=== PATIENT | male | born 1985 | race African-American/Black ===

== ENCOUNTER 2016-12-10 07:50 | Emergency (ER) | payer SELFPAY ==
[2016-12-10 07:57] VITALS: BP 140/82
[2016-12-10] MEDS ORDERED: Tetan/Diph/Pertus SYR(Tdap)* 0.5 ML SYR(BOOSTRIX) use SYR IM ONE (08:44)
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
== END 2016-12-10 10:01 | disposition home or self-care (01) ==
LOC: ED 07:50
DX: S61.011A Laceration without foreign body of right thumb without damage to nail, initial encounter (principal); F17.200 Nicotine dependence, unspecified, uncomplicated; X99.9XXA Assault by unspecified sharp object, initial encounter; Y92.9 Unspecified place or not applicable
CPT/HCPCS: 90715; 99281

== ENCOUNTER → 2016-12-28 02:14 | Emergency (ER) | payer SELFPAY ==
[~2016-12-28 02:14] MED LIST: Cephalexin CAP* 500 MG PO ONE; Ibuprofen TAB* 800 MG PO ONE
[2016-12-28 03:24] VITALS: BP 133/89
--- NOTE | 2016-12-28 07:47 | RAD ---
HISTORY: Right finger pain and swelling COMPARISONS: None VIEWS: 3, Frontal, lateral, and oblique views of the fourth digit of the right hand FINDINGS: BONE DENSITY: Normal. BONES: There is no displaced fracture. JOINTS: There is no arthropathy. ALIGNMENT: There is no dislocation. SOFT TISSUES: There is soft tissue swelling along the proximal phalanx of the fourth digit OTHER FINDINGS: None. IMPRESSION: SOFT TISSUE SWELLING. NO ACUTE OSSEOUS INJURY. IF SYMPTOMS PERSIST, RECOMMEND REPEAT IMAGING.
--- NOTE | 2017-01-18 22:57 | ED ---
jerry Thakkar Timothy, scribed for Sp Sparks MD on 12/28/16 at 0244 . Upper Extremity Pain - History of Current Complaint Chief Complaint: EDExtremityUpper Stated Complaint: RIGHT RING FINGER SWELLING Time Seen by Provider: 12/28/16 03:00 Hx Obtained From: Patient Mechanism Of Injury: Unknown Onset/Duration: Started Days Ago, Still Present Timing: Constant Severity Initially: Moderate Severity Currently: Moderate Pain Location: Finger - right 4th Associated Signs & Symptoms: Positive: Swelling - Allergies/Home Medications Allergies/Adverse Reactions: Allergies Allergy/AdvReac Type Severity Reaction Status Date / Time No Known Allergies Allergy Verified 03/12/16 16:42 PMH/Surg Hx/FS Hx/Imm Hx Endocrine/Hematology History: Denies: Hx Anticoagulant Therapy Respiratory History: Denies: Hx Asthma Infectious Disease History: Denies: Traveled Outside the [place] in Last 30 Days - Family History Known Family History: Positive: Hypertension - Social History Alcohol Use: Occasionally Substance Use Type: Reports: None Smoking Status (MU): Current Every Day Smoker Review of Systems Constitutional: Negative Eyes: Negative ENT: Negative Cardiovascular: Negative Respiratory: Negative Gastrointestinal: Negative Genitourinary: Negative Positive: Edema - right 4th finger Skin: Negative Neurological: Negative Psychological: Normal All Other Systems Reviewed And Are Negative: Yes Physical Exam Triage Information Reviewed: Yes Vital Signs On Initial Exam: Initial Vitals Temp Pulse Resp BP Pulse Ox 99.6 F 80 20 141/85 100 12/28/16 02:16 12/28/16 02:16 12/28/16 02:16 12/28/16 02:16 12/28/16 02:16 Vital Signs Reviewed: Yes Appearance: Positive: Well-Appearing, No Pain Distress Skin: Positive: Warm Head/Face: Positive: Normal Head/Face Inspection Eyes: Positive: MIKE ENT: Positive: Hearing grossly normal Neck: Positive: Supple Respiratory/Lung Sounds: Positive: Breath Sounds Present Musculoskeletal: Positive: Other - mild swelling and tenderness distal rt 4th finger, no deformity, from Diagnostics - Vital Signs Vital Signs Temp Pulse Resp BP Pulse Ox 12/28/16 02:16 99.6 F 80 20 141/85 100 - Laboratory Lab Statement: Any lab studies that have been ordered have been reviewed, and results considered in the medical decision making process. - Radiology R 4th finger Xray Interpretation: No Acute Changes - No acute fracture Radiology Interpretation Completed By: ED Physician Course/Dx - Course Assessment/Plan: Gregg Guadalupe is a 31 yo male presenting to [facility] with swelling in his right fourth finger since 0800 12/26/16. His right fourth finger XR suggests no acute fracture. In the ED course he received Kelfex and motrin. After clinical examination and review of his imaging study, he will be discharged home with right fourth finger swelling with appropiate instructions. - Diagnoses Provider Diagnoses: Swelling of right ring finger Discharge - Discharge Plan Condition: Stable Disposition: HOME Prescriptions: Cephalexin CAP* [Keflex CAP*] 250 mg PO QID #30 cap Ibuprofen TAB* [Motrin TAB* 600 MG] 600 mg PO Q6H #30 tab Patient Education Materials: Finger Sprain (ED) Referrals: José Miguel Frias MD [Primary Care Provider] - 2 Days Additional Instructions: Please follow up with your primary care physician regarding your visit to the emergency department today. Return to the emergency department with any new or recurring symptoms. The documentation as recorded by the jerry montano Timothy accurately reflects the service I personally performed and the decisions made by , Sp Sparks MD.
== END | disposition home or self-care (01) ==
LOC: ED 02:14
DX: M79.89 Other specified soft tissue disorders (principal)
CPT/HCPCS: 73140; 99282; A9270-GY

== ENCOUNTER 2017-03-11 09:37 | Emergency (ER) | payer OTHER ==
[2017-03-11] MEDS ORDERED: HYDROcodone/ACETAMIN 5-325 MG* 1 TAB PO ONE (10:09)
[2017-03-11] MEDS ORDERED: Penicillin VK TAB* 250 MG PO ONE ×2 (10:10→10:55)
[2017-03-11 11:18] VITALS: BP 150/104
--- NOTE | 2017-03-11 12:15 | ED ---
Throat Pain/Nasal Congestion - HPI Summary HPI Summary: Patient arrives to ED with CC of pain over right upper premolar radiating to the jaw and ear. Denies trismus, drooling or dysphagia. Pain is 10/10, sharp and throbbing. He states pain began last evening after brushing his teeth. Denies airway compromise or SOB. Denies ear pain, eye pain, blurry vision or double vision. Otherwise healthy. Pain is worse with chewing and cold drinks, not better with ibuprofen. Patient is awaiting medical insurance prior to going to the dentist. He denies any other symptoms. He has HTN and on arrival to the ED BP was 173/147. After dose of pain management, the BP reduced to 150/ 97. Patient is advised to follow up with PCP reagarding HTN and is encouraged to follow up with dentist as well this week. - History of Current Complaint Chief Complaint: EDDentalPain Time Seen by Provider: 03/11/17 09:53 Hx Obtained From: Patient Onset/Duration: Sudden Onset Severity: Severe Associated Signs And Symptoms: Positive: Negative - Epiglottits Risk Factors Epiglottis Risk Factors: Negative - Allergies/Home Medications Allergies/Adverse Reactions: Allergies Allergy/AdvReac Type Severity Reaction Status Date / Time No Known Allergies Allergy Verified 03/11/17 09:51 Home Medications: Home Medications Ibuprofen TAB* [Motrin TAB* 600 MG] 600 mg PO Q6H PRN 03/11/17 [History Confirmed 03/11/17] PMH/Surg Hx/FS Hx/Imm Hx Previously Healthy: Yes Endocrine/Hematology History: Denies: Hx Anticoagulant Therapy Respiratory History: Denies: Hx Asthma - Immunization History Hx Pertussis Vaccination: No Immunizations Up to Date: Unable to Obtain/Confirm Infectious Disease History: No Infectious Disease History: Denies: Traveled Outside the [place] in Last 30 Days - Family History Known Family History: Positive: Hypertension - Social History Occupation: Employed Full-time Lives: With Family Alcohol Use: Occasionally Alcohol Amount: 2 x's per week - beer Hx Substance Use: Yes Substance Use Type: Reports: Marijuana Hx Tobacco Use: Yes Smoking Status (MU): Current Every Day Smoker Review of Systems Constitutional: Negative Eyes: Negative Positive: Dental Pain Cardiovascular: Negative Respiratory: Negative Skin: Negative Psychological: Normal All Other Systems Reviewed And Are Negative: Yes Physical Exam Triage Information Reviewed: Yes Vital Signs On Initial Exam: Initial Vitals Temp Pulse Resp BP Pulse Ox 96.6 F 79 20 161/108 99 03/11/17 09:40 03/11/17 09:40 03/11/17 09:40 03/11/17 09:40 03/11/17 09:40 Vital Signs Reviewed: Yes Appearance: Positive: Well-Appearing, Well-Nourished Skin: Positive: Warm, Skin Color Reflects Adequate Perfusion Eyes: Positive: Normal, MIKE, Conjunctiva Clear ENT: Positive: Dental tenderness Neck: Positive: Supple, No Lymphadenopathy Respiratory/Lung Sounds: Positive: Clear to Auscultation, Breath Sounds Present Cardiovascular: Positive: Normal, RRR, Pulses are Symmetrical in both Upper and Lower Extremities Musculoskeletal: Positive: Normal, Strength/ROM Intact Neurological: Positive: Sensory/Motor Intact, Alert, Oriented to Person Place, Time, Speech Normal Psychiatric: Positive: Normal Diagnostics - Vital Signs Vital Signs Temp Pulse Resp BP Pulse Ox 03/11/17 11:16 97.7 F 70 16 150/104 03/11/17 09:46 98.7 F 74 20 164/100 100 03/11/17 09:40 96.6 F 79 20 161/108 99 - Laboratory Lab Statement: Any lab studies that have been ordered have been reviewed, and results considered in the medical decision making process. EENT Course/Dx - Course Course Of Treatment: No dental abscess or lesions seen over area of concern. No erythema at site of pain. No drainage from area. Pain on palpation over mandible. No TMJ tenderness. No pain with opening and closing mouth. Poor dental hygiene and outpatient dental care. Will treat for possible dental infection/abscess based on symptoms of pain and radiation to jaw and ear. No allergies. Will treat with Penicillin. Patient to follow up immediately with dentist. HTN noted to be 173/147 on arrival. After dispensed pain medication, BP is reduced to 150/97. Medications were reveiwed with patient. Encouarged to follow up with PCP or return to ED for worsening symptoms. Return precautions given. Patient understands and agrees with plan. Ok for discharge. Patient is to follow up with PCP regarding HTN. - Differential Diagnoses Differential Diagnoses: Dental Abscess, Dental Caries, Odontogenic Pain, Pain of Unknown Etiology - Diagnoses Provider Diagnoses: Pain, dental Discharge - Discharge Plan Condition: Stable Disposition: HOME Prescriptions: Penicillin VK 500 MG TAB(NF) [Penicillin VK 500 mg Tab(NF)] 500 mg PO QID #28 tab MDD 4 oxyCODONE/Acetamin 10/325(NF) [Percocet 10/325 (NF)] 1 tab PO QID PRN #12 tab MDD 4 PRN Reason: Pain Patient Education Materials: Toothache (ED) Referrals: José Miguel Frias MD [Primary Care Provider] - Additional Instructions: You have been diagnosed with dental pain with possible infection: Antibiotics as prescribed to you. Penicillin four times daily for 7 days. To minimize the potential for gastrointestinal intolerance, Penicillin should be taken at the start of a meal. If you have any questions about your medication, please contact us or ask your pharmacist. Salt water rinses several times per day will improve healing time. Ibuprofen 600mg three times daily with meals for discomfort. Oxycodone for any breakthrough pain May use lollicaines or OTC Anbesol over the area for comfort. Follow up with a dentist for routine care to prevent recurrence of infections. If fever, worsening pain or swelling develops, see your PCP, dentist or come back to the Emergency Department. Images - Images Dental: 1 - with cavity filling - pain on palpation without signs of infection, abscess or erythema surrounding.
== END 2017-03-11 11:16 | disposition home or self-care (01) ==
LOC: ED 09:37
DX: K08.89 Other specified disorders of teeth and supporting structures (principal); F17.210 Nicotine dependence, cigarettes, uncomplicated
CPT/HCPCS: 99282; A9270-GY

== ENCOUNTER 2017-03-27 22:36 | Emergency (ER) | payer OTHER ==
[2017-03-27 22:43] VITALS: BP 139/75
[2017-03-28] MEDS ORDERED: Clindamycin CAP* 150 MG PO ONE (00:40)
[2017-03-28] MEDS ORDERED: oxyCODONE/Acetamin 5/325 MG* TAB PO ONE (00:41)
--- NOTE | 2017-03-28 00:49 | ED ---
Delmis Thakkar Thomas, scribed for Denny Chisholm on 03/28/17 at 0042 . Throat Pain/Nasal Congestion - HPI Summary HPI Summary: The pt is a 31 y/o F presenting to the ED c/o dental pain for two months. The pt rates the pain 5/10. The pain is aggravated and alleviated by nothing. The patient has treated the pain with Advil and Motrin LVN LPN, which has not alleviated his pain. PMHx: previously healthy. 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 Onset/Duration: Lasting Weeks - 2 months, Still Present Severity: Moderate Associated Signs And Symptoms: Positive: Negative Cough: None - Allergies/Home Medications Allergies/Adverse Reactions: Allergies Allergy/AdvReac Type Severity Reaction Status Date / Time No Known Allergies Allergy Verified 03/27/17 22:41 PMH/Surg Hx/FS Hx/Imm Hx Previously Healthy: No Endocrine/Hematology History: Denies: Hx Anticoagulant Therapy Respiratory History: Denies: Hx Asthma - Surgical History Surgery Procedure, Year, and Place: None Infectious Disease History: No Infectious Disease History: Denies: Traveled Outside the [place] in Last 30 Days - Family History Known Family History: Positive: Hypertension - Social History Alcohol Use: Occasionally Alcohol Amount: 2 x's per week - beer Hx Substance Use: Yes Substance Use Type: Reports: None Hx Tobacco Use: Yes Smoking Status (MU): Current Every Day Smoker Review of Systems Negative: Fever Positive: Dental Pain - for two months All Other Systems Reviewed And Are Negative: Yes Physical Exam Triage Information Reviewed: Yes Vital Signs On Initial Exam: Initial Vitals Temp Pulse Resp BP Pulse Ox 98.0 F 87 16 139/75 98 03/27/17 22:41 03/27/17 22:41 03/27/17 22:41 03/27/17 22:41 03/27/17 22:41 Vital Signs Reviewed: Yes Appearance: Positive: Well-Appearing, No Pain Distress Skin: Positive: Warm, Skin Color Reflects Adequate Perfusion, Dry Head/Face: Positive: Normal Head/Face Inspection Eyes: Positive: EOMI, MIKE ENT: Positive: Dental tenderness - 7th tooth, Other - There is no swelling Neck: Positive: Supple, Nontender Respiratory/Lung Sounds: Positive: Clear to Auscultation, Breath Sounds Present Cardiovascular: Positive: RRR, Pulses are Symmetrical in both Upper and Lower Extremities Abdomen Description: Positive: Nontender, Soft Bowel Sounds: Positive: Present Musculoskeletal: Positive: Normal, Strength/ROM Intact Neurological: Positive: Normal, Sensory/Motor Intact, Alert, Oriented to Person Place, Time Diagnostics - Vital Signs Vital Signs Temp Pulse Resp BP Pulse Ox 03/27/17 22:41 98.0 F 87 16 139/75 98 - Laboratory Lab Statement: Any lab studies that have been ordered have been reviewed, and results considered in the medical decision making process. EENT Course/Dx - Course Assessment/Plan: Patient c/o dental pain for 2 months. Patient diagnosed with dental pain. Prescribed Clindamycin and Percocet. Discharged with referral to dentist in 3 days. - Diagnoses Provider Diagnoses: Pain, dental Discharge - Discharge Plan Condition: Stable Disposition: HOME Prescriptions: Clindamycin HCl [Clindamycin 150 MG CAP*] 300 mg PO QID #40 cap oxyCODONE/Acetamin 5/325 MG* [Percocet 5/325 TAB*] 1 tab PO Q8H PRN #10 tab MDD 3 PRN Reason: Pain Patient Education Materials: Toothache (ED) Referrals: José Miguel Frias MD [Primary Care Provider] - Additional Instructions: Follow up with a dentist in the next 3 days. See the attached sheet with dental care referrals. The documentation as recorded by the Delmis montano Thomas accurately reflects the service I personally performed and the decisions made by , Denny Chisholm.
== END 2017-03-28 00:54 | disposition home or self-care (01) ==
LOC: ED 22:36
DX: K08.89 Other specified disorders of teeth and supporting structures (principal); F17.200 Nicotine dependence, unspecified, uncomplicated
CPT/HCPCS: 99282; A9270-GY

== ENCOUNTER 2017-07-17 01:31 | Inpatient (IN) | payer SELFPAY ==
[2017-07-17] MEDS ORDERED: Aspirin Low Dose CHEW TAB* 81 MG PO ONE (01:55)
[2017-07-17] MEDS ORDERED: Nitroglycerin 2% OINT* 1 GM PAK TOPICAL ONE (01:56)
[2017-07-17 02:17] LABS: Hematocrit 44 % (42-52); Hemoglobin 15.1 g/dl (14.0-18.0); Mean Corpuscular HGB Conc 34 g/dl (31-36); Mean Corpuscular Hemoglobin 31 pg (27-31); Mean Corpuscular Volume 91 fL (80-94); Mean Platelet Volume 8 um3 (7.4-10.4); Red Blood Count 4.85 10^6/ul (4.0-5.4); Red Cell Distribution Width 14 % (10.5-15); White Blood Count 11.3 10^3/ul (3.5-10.8)
[2017-07-17] MEDS ORDERED: Heparin for STEMI(*) 5,000 UNITS/ML 1 ML VIAL IV ONE ×2 (02:24→02:28)
[2017-07-17] MEDS ORDERED: Ticagrelor* 90 MG TAB PO ONE ×2 (02:25→02:28)
[2017-07-17 02:35] LABS: Albumin 4.3 g/dL (3.2-5.2); BUN/Creatinine Ratio 14.5 (8-20); Calcium 9.2 mg/dL (8.6-10.3); EGFR African American 99.8 (>60); EGFR Non-African American 77.6 (>60); Globulin 3.4 g/dL (2-4); Potassium 3.9 mmol/L (3.5-5.0); Total Bilirubin 0.7 mg/dL (0.2-1.0); Total Protein 7.7 g/dL (6.4-8.9)
[2017-07-17 02:43] LABS: Troponin I 0.04 ng/mL (<0.04)
[2017-07-17] MEDS ORDERED: fentaNYL* 50 MCG/ML 2 ML VIAL (100 MCG VIAL) ONE (02:44)
[2017-07-17] MEDS ORDERED: Lidocaine 1% INJ* 10 MG/ML 30 ML SDV ONE (02:45)
[2017-07-17] MEDS ORDERED: Heparin(*) 1000 UNIT/ML 10 ML VIAL CATH LAB IV ONE (02:45)
[2017-07-17] MEDS ORDERED: VERAPAMIL 2.5 MG/ML 4 ML VIAL ONE (02:45)
[2017-07-17] MEDS ORDERED: Heparin 2 UNITS/ML IVPREMIX* 3,000 ML IV ONE (02:45)
[2017-07-17] MEDS ORDERED: nitroGLYCERIN DRIP* 25,000 MCG/250 ML BTL ONE (02:45)
[2017-07-17] MEDS ORDERED: Midazolam* 1 MG/ML 10 ML VIAL (10 MG) ONE (02:46)
[2017-07-17] MEDS ORDERED: Iohexol 350 (CONTRAST) 200 ML MDV IV ONE (02:46)
[2017-07-17 03:35] LABS: Benzodiazepine Urine Screen None Detected (None Detect)
[2017-07-17] MEDS ORDERED: Bivalirudin(*) 250 MG VIAL ONE ×2 (03:37→03:40)
[2017-07-17] MEDS ORDERED: Nitroglycerin TAB 0.4 MG* 0.4 MG TAB SL PRN (04:23)
[2017-07-17] MEDS ORDERED: Acetaminophen TAB* 325 MG PO PRN (04:24)
[2017-07-17] MEDS ORDERED: Atorvastatin* 80 MG TAB PO ONE (04:32)
[2017-07-17] MEDS ORDERED: Atorvastatin* 80 MG TAB ONE (04:38)
[2017-07-17] MEDS: NS 0.9% 1000 ML* 1,000 ML IV SCH ×2 (04:46→14:20)
--- NOTE | 2017-07-17 04:48 | ED ---
Alexi Thakkar Tiffany, scribed for Denny Chisholm on 07/17/17 at 0155 . HPI Chest Pain - HPI Summary HPI Summary: This patient is a 32 year old M presenting to [facility] with a chief complaint of chest pain since two hours ago. The patient rates the pain 8/10 in severity. Symptoms aggravated by nothing. Symptoms alleviated by nothing. Patient reports arm numbness, leg numbness and shakiness. Patient denies nausea, vomiting and dizziness. The patient reports that he consumed two shots of Reese vodka and smoked marijuana. - History of Current Complaint Chief Complaint: EDChestPainROMI Hx Obtained From: Patient Onset/Duration: Started Hours Ago, Still Present Current Severity: Moderate Pain Intensity: 8 Pain Scale Used: 0-10 Numeric Aggravating Factor(s): Nothing Alleviating Factor(s): Nothing Associated Signs and Symptoms: Positive: Other: - arm numbness, leg numbness and shakiness; NEGATIVE: nausea, vomiting and dizziness - Allergy/Home Medications Allergies/Adverse Reactions: Allergies Allergy/AdvReac Type Severity Reaction Status Date / Time No Known Allergies Allergy Verified 03/27/17 22:41 PMH/Surg Hx/FS Hx/Imm Hx Previously Healthy: Yes Endocrine/Hematology History: Denies: Hx Anticoagulant Therapy, Hx Diabetes Cardiovascular History: Denies: Hx Coronary Artery Disease, Hx Hypertension Respiratory History: Denies: Hx Asthma - Surgical History Surgery Procedure, Year, and Place: None Infectious Disease History: No Infectious Disease History: Denies: Traveled Outside the [place] in Last 30 Days - Family History Known Family History: Positive: Hypertension - Social History Alcohol Use: Occasionally Alcohol Amount: 2 x's per week - beer Hx Substance Use: Yes Substance Use Type: Reports: Marijuana Substance Use Comment - Amount & Last Used: a couple of times a week Hx Tobacco Use: Yes Smoking Status (MU): Current Every Day Smoker Review of Systems Positive: Chest Pain Negative: Vomiting, Nausea Neurological: Other - Shakiness; NEGATIVE: shakiness Positive: Numbness - In arms and legs All Other Systems Reviewed And Are Negative: Yes Physical Exam - Summary Physical Exam Summary: Appearance: Well appearing, no pain distress Skin: warm, dry, reflects adequate perfusion Head/face: normal Eyes: EOMI, MIKE ENT: normal Neck: supple, non-tender Respiratory: CTA, breath sounds present Cardiovascular: RRR, pulses symmetrical Abdomen: non-tender, soft Bowel: present Musculoskeletal: normal, strength/ROM intact Neuro: normal, sensory motor intact, A&Ox3 Triage Information Reviewed: Yes Vital Signs On Initial Exam: Initial Vitals Temp Pulse Resp BP Pulse Ox 97.9 F 84 20 142/114 99 07/17/17 01:35 07/17/17 01:35 07/17/17 01:35 07/17/17 01:35 07/17/17 01:35 Vital Signs Reviewed: Yes - Letty Coma Scale Coma Scale Total: 15 Diagnostics - Vital Signs Vital Signs Temp Pulse Resp BP Pulse Ox 07/17/17 01:35 97.9 F 84 20 142/114 99 - Laboratory Lab Results: Lab Results 07/17/17 07/17/17 07/17/17 Range/Units 02:02 02:02 02:02 WBC 11.3 H (3.5-10.8) 10^3/ul RBC 4.85 (4.0-5.4) 10^6/ul Hgb 15.1 (14.0-18.0) g/dl Hct 44 (42-52) % MCV 91 (80-94) fL MCH 31 (27-31) pg MCHC 34 (31-36) g/dl RDW 14 (10.5-15) % Plt Count 184 (150-450) 10^3/ul MPV 8 (7.4-10.4) um3 Neut % (Auto) 78.9 (38-83) % Lymph % (Auto) 14.3 L (25-47) % [place] Per[place] % (Auto) 6.0 (1-9) % Eos % (Auto) 0.3 (0-6) % Baso % (Auto) 0.5 (0-2) % Absolute Neuts (auto) 8.9 H (1.5-7.7) 10^3/ul Absolute Lymphs (auto) 1.6 (1.0-4.8) 10^3/ul Absolute Monos (auto) 0.7 (0-0.8) 10^3/ul Absolute Eos (auto) 0 (0-0.6) 10^3/ul Absolute Basos (auto) 0.1 (0-0.2) 10^3/ul Absolute Nucleated RBC 0 10^3/ul Nucleated RBC % 0 INR (Anticoag Therapy) 1.03 H (0.77-1.02) APTT 31.5 (26.0-36.3) seconds Sodium (133-145) mmol/L Potassium (3.5-5.0) mmol/L Chloride (101-111) mmol/L Carbon Dioxide (22-32) mmol/L Anion Gap (2-11) mmol/L BUN (6-24) mg/dL Creatinine (0.67-1.17) mg/dL Est GFR ( Amer) (>60) Est GFR (Non-Af Amer) (>60) BUN/Creatinine Ratio (8-20) Glucose (70-100) mg/dL Calcium (8.6-10.3) mg/dL Total Bilirubin (0.2-1.0) mg/dL AST (13-39) U/L ALT (7-52) U/L Alkaline Phosphatase (34-104) U/L Total Creatine Kinase (10-223) U/L CK-MB (CK-2) (0.6-6.3) ng/mL Myoglobin (17.4-105.7) ng/mL Troponin I (<0.04) ng/mL B-Natriuretic Peptide 20 ( - 100) pg/mL Total Protein (6.4-8.9) g/dL Albumin (3.2-5.2) g/dL Globulin (2-4) g/dL Albumin/Globulin Ratio (1-3) LDL Cholesterol Direct mg/dL Urine Opiates Screen (None Detect) Ur Barbiturates Screen (None Detect) Ur Phencyclidine Scrn (None Detect) Ur Amphetamines Screen (None Detect) U Benzodiazepines Scrn (None Detect) Urine Cocaine Screen (None Detect) U Cannabinoids Screen (None Detect) 07/17/17 07/17/17 Range/Units 02:02 03:00 WBC (3.5-10.8) 10^3/ul RBC (4.0-5.4) 10^6/ul Hgb (14.0-18.0) g/dl Hct (42-52) % MCV (80-94) fL MCH (27-31) pg MCHC (31-36) g/dl RDW (10.5-15) % Plt Count (150-450) 10^3/ul MPV (7.4-10.4) um3 Neut % (Auto) (38-83) % Lymph % (Auto) (25-47) % [place] Per[place] % (Auto) (1-9) % Eos % (Auto) (0-6) % Baso % (Auto) (0-2) % Absolute Neuts (auto) (1.5-7.7) 10^3/ul Absolute Lymphs (auto) (1.0-4.8) 10^3/ul Absolute Monos (auto) (0-0.8) 10^3/ul Absolute Eos (auto) (0-0.6) 10^3/ul Absolute Basos (auto) (0-0.2) 10^3/ul Absolute Nucleated RBC 10^3/ul Nucleated RBC % INR (Anticoag Therapy) (0.77-1.02) APTT (26.0-36.3) seconds Sodium 133 (133-145) mmol/L Potassium 3.9 (3.5-5.0) mmol/L Chloride 101 (101-111) mmol/L Carbon Dioxide 26 (22-32) mmol/L Anion Gap 6 (2-11) mmol/L BUN 16 (6-24) mg/dL Creatinine 1.10 (0.67-1.17) mg/dL Est GFR ( Amer) 99.8 (>60) Est GFR (Non-Af Amer) 77.6 (>60) BUN/Creatinine Ratio 14.5 (8-20) Glucose 125 H (70-100) mg/dL Calcium 9.2 (8.6-10.3) mg/dL Total Bilirubin 0.70 (0.2-1.0) mg/dL AST 22 (13-39) U/L ALT 33 (7-52) U/L Alkaline Phosphatase 60 (34-104) U/L Total Creatine Kinase 157 (10-223) U/L CK-MB (CK-2) 2.8 (0.6-6.3) ng/mL Myoglobin 81.2 (17.4-105.7) ng/mL Troponin I 0.04 H* (<0.04) ng/mL B-Natriuretic Peptide ( - 100) pg/mL Total Protein 7.7 (6.4-8.9) g/dL Albumin 4.3 (3.2-5.2) g/dL Globulin 3.4 (2-4) g/dL Albumin/Globulin Ratio 1.3 (1-3) LDL Cholesterol Direct 115 mg/dL Urine Opiates Screen None detected (None Detect) Ur Barbiturates Screen None detected (None Detect) Ur Phencyclidine Scrn None detected (None Detect) Ur Amphetamines Screen None detected (None Detect) U Benzodiazepines Scrn None detected (None Detect) Urine Cocaine Screen None detected (None Detect) U Cannabinoids Screen Presumptive positive H (None Detect) Result Diagrams: 07/17/17 02:02 07/17/17 02:02 Lab Statement: Any lab studies that have been ordered have been reviewed, and results considered in the medical decision making process. - Radiology CXR Radiology Interpretation Completed By: ED Physician - CXR is normal. - EKG 01:42 Cardiac Rate: NL EKG Rhythm: Sinus Rhythm - 72 BPM EKG Interpretation: st elevation inf leads Chest Pain Course/Dx - Course Course Of Treatment: This patient is a 32 year old M presenting to [facility] with a chief complaint of chest pain since two hours ago. An EKG reveals sinus rhythm ST changes in inferior waves. CXR is, per ED physician, normal. Bloodwork obtained. In the ED course the patient was given Aspirin and Nitroglycerin. We discussed patient care with Dr. No (cardiology) who advised that the patient is not having acute STEMI at the moment. Dr. Mora (interventionalist cardiology) called and said that patient was STEMI. Patient will be admitted. The patient is agreeable with this plan. - Diagnoses Provider Diagnoses: Inferior STEMI - Provider Notifications Discussed Care Of Patient With: Bladimir No Time Discussed With Above Provider: 02:05 Instructed by Provider To: Other - We discussed patient care with Dr. No ( cardiology) who advised that the patient is not having acute STEMI at the moment. At 02:18, Dr. Mora called me and said the patient was STEMI. - Critical Care Time Critical Care Time: 75-104 min Discharge - Discharge Plan Condition: Fair Disposition: ADMITTED TO [facility] documentation as recorded by the Alexi montano Tiffany accurately reflects the service I personally performed and the decisions made by , Denny Chisholm.
[2017-07-17] MEDS ORDERED: Captopril TAB* 12.5 MG PO SCH (06:00)
[2017-07-17] MEDS: Metoprolol Tartrate TAB* 25 MG PO SCH ×4 (06:06→20:29)
[2017-07-17] MEDS ORDERED: Lidocaine 2% (CARDIAC)* 20 MG/ML 5 ML SYRINGE (100 MG) IV ONE (07:25)
[2017-07-17] MEDS ORDERED: Lidocaine 2% (CARDIAC)* 20 MG/ML 5 ML SYRINGE (100 MG) ONE (07:26)
[2017-07-17] MEDS ORDERED: LIDOCAINE IVPB ONE (07:26)
[2017-07-17 07:58] LABS: Hematocrit 42 % (42-52); Hemoglobin 14.4 g/dl (14.0-18.0); Mean Corpuscular HGB Conc 34 g/dl (31-36); Mean Corpuscular Hemoglobin 31 pg (27-31); Mean Corpuscular Volume 91 fL (80-94); Mean Platelet Volume 8 um3 (7.4-10.4); Red Blood Count 4.64 10^6/ul (4.0-5.4); Red Cell Distribution Width 14 % (10.5-15); White Blood Count 12.3 10^3/ul (3.5-10.8)
--- NOTE | 2017-07-17 07:58 | RAD ---
INDICATION: Chest pain x4 hours COMPARISON: None. TECHNIQUE: Single AP portable view of the chest was obtained. FINDINGS: Image quality is compromised due to the relative inferiority of a portable chest x-ray. The heart and mediastinum exhibit normal size and contour. The lungs are grossly clear. There is no evidence of a large pleural effusion. Visualized bones are normal for the patient's age. IMPRESSION: No radiographic evidence for acute cardiopulmonary abnormality on this portable chest x-ray.
[2017-07-17 08:10] LABS: BUN/Creatinine Ratio 12.5 (8-20); Calcium 9.1 mg/dL (8.6-10.3); EGFR African American 116.7 (>60); EGFR Non-African American 90.8 (>60); Potassium 3.8 mmol/L (3.5-5.0)
[2017-07-17] MEDS ORDERED: Captopril TAB* 12.5 MG PO ONE (09:18)
[2017-07-17] MEDS: Ticagrelor* 90 MG TAB PO SCH ×2 (09:18→20:29)
[2017-07-17] MEDS: LIDOCAINE DRIP IVPB ONE ×2 (09:21→23:31)
--- NOTE | 2017-07-17 10:45 | HP ---
CC: José Miguel Frias MD * HISTORY AND PHYSICAL: DATE OF ADMISSION: 07/17/17 CHIEF COMPLAINT: The patient with chest discomfort starting from approximately 10 p.m. last night with EKG suggesting acute ST segment elevation inferior wall myocardial infarction. HISTORY OF PRESENT ILLNESS: The patient is a pleasant 32-year-old - I[place]ian male with no prior known cardiac history. He specifically denies any history of myocardial infarction, congestive heart failure, significant heart rhythm disturbance. The patient states that last night he smoked marijuana and also drank alcohol. He started feeling epigastric discomfort that got worsening in nature as a pressure sensation. He eventually read online about concerns about the potential of laced marijuana and eventually decided to seek medical attention and went to the emergency room. In the emergency room, his EKG was abnormal and the emergency room physician called Dr. Bladimir No, who was on-call for Cardiology. Dr. No reviewed the EKG and then called me and asked me to look at the EKG. I reviewed the EKG and discussed it with him and stated that I thought this was indeed a STEMI and I called the emergency room back and had them call a STEMI alert. On arrival, he was still having mild-to- moderate active chest discomfort. His vital signs were stable. The risks and benefits were explained. After obtaining his history and examining him, he understood them and wished to proceed. The patient specifically denied any history of hypertension or diabetes or high cholesterol. He does have a positive history of smoking and he denies any significant family history of early coronary artery disease. There is a family history of hypertension. PAST SURGICAL HISTORY: None. ALLERGIES: No known allergies. SOCIAL HISTORY: Drinks alcohol at least 2 times a week. Does use marijuana and does smoke on a daily basis. REVIEW OF SYSTEMS: Pertinent to proceeding emergently to the cardiovascular laboratory. He denied any history of kidney dysfunction, any allergy to contrast agent that he was aware of. No significant bleeding history. Denying hematemesis, hematochezia or hematuria. No prior history of stroke or TIA. PHYSICAL EXAMINATION GENERAL: When I see him reveals a pleasant gentleman, who appears to be mildly anxious, appropriate for the situation. VITAL SIGNS: Blood pressure 147/89, pulse 90, respirations 23, O2 saturation 100%. HEENT: Conjunctivae are pink. Sclerae are clear. NECK: Supple. No increased JVP. Carotid with good upstroke and volume. There are no bruits or transmitted murmur. LUNGS: Reveal no accessory muscle usage. He has [id number] excursion. Lungs have no active rales, rhonchi, or wheezes. HEART: Reveals no visible heaves, no palpable heaves or thrills. Heart sounds are mildly distant due to large chest. No significant systolic or diastolic murmur. ABDOMEN: Soft, mildly obese, nontender without organomegaly. EXTREMITIES: Without clubbing, cyanosis, juany pitting edema. Peripheral pulses are intact. NEUROLOGIC: The patient is alert, oriented with normal mentation. MUSCULOSKELETAL: The patient moves all extremities appropriately. PSYCHOLOGICAL: The patient with normal affect. DIAGNOSTIC STUDIES/LAB DATA: Initial laboratory results revealed a BUN and creatinine of 16 and 1.1. Sodium 133, potassium 3.9. Hemoglobin and hematocrit 15.1 and 44, white count 11,300, platelet count 184,000. BNP 20. LDL 115. Total CPK 157. Myoglobin 81.2. Troponin 0.04. EKG shows normal sinus rhythm, 72, with ST segment depression, downsloping in I , aVL, and V2 and V6 with mild ST segment elevation in II, III, aVF. OVERALL ASSESSMENT: The patient presents with persistent chest discomfort. EKG suggesting an acute ST segment elevation inferior wall myocardial infarction suggesting perhaps total occlusion of the right coronary artery. The patient has received heparin 4000 units, Brilinta 180 mg orally, and aspirin 325 orally. The risks and benefits were explained. He understood them and wished to proceed. Further management will be made pending results of the cardiac catheterization. [id number]/[facility] #: [id number] [facility]
[2017-07-17] MEDS ORDERED: Metoprolol Tartrate TAB* 25 MG PO SCH (11:00)
[2017-07-17] MEDS: Captopril TAB* 12.5 MG PO SCH ×2 (14:33→20:29)
[2017-07-17] MEDS ORDERED: Metoprolol Tartrate TAB* 25 MG ONE (14:47)
[2017-07-17 15:16] LABS: Troponin I 44.54 ng/mL (<0.04)
[2017-07-17] MEDS: Atorvastatin* 80 MG TAB PO SCH (17:35)
[2017-07-17 21:38] LABS: Troponin I 32.7 ng/mL (<0.04)
[2017-07-18] MEDS ORDERED: LIDOCAINE DRIP IVPB SCH (02:00)
[2017-07-18] MEDS: Metoprolol Tartrate TAB* 25 MG PO SCH (02:47)
[2017-07-18 05:45] LABS: Hematocrit 42 % (42-52); Hemoglobin 14.4 g/dl (14.0-18.0); Mean Corpuscular HGB Conc 34 g/dl (31-36); Mean Corpuscular Hemoglobin 31 pg (27-31); Mean Corpuscular Volume 91 fL (80-94); Mean Platelet Volume 8 um3 (7.4-10.4); Red Blood Count 4.62 10^6/ul (4.0-5.4); Red Cell Distribution Width 14 % (10.5-15); White Blood Count 9.1 10^3/ul (3.5-10.8)
[2017-07-18 06:02] LABS: Albumin 3.6 g/dL (3.2-5.2); BUN/Creatinine Ratio 9.1 (8-20); Calcium 8.7 mg/dL (8.6-10.3); EGFR African American 129.1 (>60); EGFR Non-African American 100.4 (>60); Potassium 3.9 mmol/L (3.5-5.0); Total Bilirubin 1.1 mg/dL (0.2-1.0); Total Protein 6.6 g/dL (6.4-8.9)
[2017-07-18] MEDS ORDERED: Metoprolol Succinate XL TAB* 50 MG PO SCH (09:00)
[2017-07-18] MEDS: Ticagrelor* 90 MG TAB PO SCH ×2 (09:18→20:34)
[2017-07-18] MEDS: Aspirin Low Dose CHEW TAB* 81 MG PO SCH (09:18)
[2017-07-18] MEDS: Captopril TAB* 12.5 MG PO SCH ×3 (09:19→20:33)
--- NOTE | 2017-07-18 11:06 | ECHO ---
Patient: JASWANT RODRIGUEZ [facility] Rec#: [id number] : 1985 Date: 07/18/2017 Age: 32y Height: 172.7 cm / 68.0 in Weight: 130.6 kg / 287.8 lbs Sex: M BSA: 2.4 Room#: ICU 7 Admit Date#: 07/17/2017 Type: Inpatient Referring: Deion Mora MD Reading: Deion Mora MD Senior Editor: Manisha Cortes RN RDCS CC: José Miguel Frias MD Transthoracic Echocardiogram Indication: Inferior STEMI S/P PCI BP: 143/84 HR: 74 Rhythm: NSR Findings History: ETOH and marijuana use, smoker, obesity Technical Comments: The study quality is fair. The study is technically limited due to patient body habitus. The study is technically limited due to the patient's smoking history. Completed at 0915. Left Ventricle: The left ventricular chamber size is normal. Moderate concentric left ventricular hypertrophy is observed. There is increased basal septal hypertrophy noted without evidence of an increased gradient across the left ventricular outflow tract. There are multiple regional wall motion abnormalities. There is moderately decreased left ventricular systolic function. The estimated ejection fraction is 35-40%. There is no consistent Doppler evidence of clinically significant diastolic dysfunction. Left Atrium: The left atrium is mildly dilated. Right Ventricle: The right ventricle is slightly dilated. The right ventricular global systolic function is mildly to moderately reduced. Right Atrium: The right atrium is mildly dilated. There is evidence of an atrial septal aneurysm. Aortic Valve: The aortic valve is trileaflet. The aortic valve leaflets are mildly thickened. There is aortic annular calcification. There is a trace of aortic regurgitation. There is no evidence of aortic stenosis. Mitral Valve: The mitral valve leaflets are mildly thickened. There is a trace of mitral regurgitation. There is no evidence of mitral stenosis. Tricuspid Valve: The tricuspid valve leaflets are normal. There is trace tricuspid regurgitation. No pulmonary hypertension is noted. There is no tricuspid stenosis. Pulmonic Valve: The pulmonic valve appears normal. There is mild pulmonic regurgitation. There is no pulmonic stenosis. Pericardium: There is no significant pericardial effusion. A pericardial fat pad is visualized. Aorta: There is no dilatation of the ascending aorta. There is no dilatation of the aortic arch. There is no dilation of the aortic root. Pulmonary Artery: The main pulmonary artery appears normal. Venous: The inferior vena cava appears normal in size. There is a greater than 50% respiratory change in the inferior vena cava dimension. Conclusions Moderate concentric left ventricular hypertrophy is observed. There is moderately decreased left ventricular systolic function. The estimated ejection fraction is 35-40%. There are multiple regional wall motion abnormalities. The right ventricular global systolic function is mildly to moderately reduced. The right atrium is mildly dilated. The left atrium is mildly dilated. No significant valvular disease: There is a trace of aortic regurgitation. There is a trace of mitral regurgitation. There is trace tricuspid regurgitation. There is mild pulmonic regurgitation. No reports of prior studies are offered for comparison. Measurements Name Value Normal Range RVIDd (AP) 2D 3.7 cm (0.9 - 2.6) RVDdMajor (2D) 3.9 cm (2.2 - 4.4) RAd ISD 4CH 5 cm (3.4 - 4.9) RA (A4C)W 4.5 cm (2.9 - 4.6) IVSd (2D) 1.6 cm (0.6 - 1) LVPWd (2D) 1.6 cm (0.6 - 1) LVIDd (2D) 4.3 cm (3.6 - 5.4) LVIDs (2D) 3.6 cm - LV FS (2D) 17 % (25 - 45) Aortic Annulus 2.3 cm (1.4 - 2.6) Ao root diameter (2D) 3.3 cm (2.1 - 3.5) Ascending Ao 2.7 cm (2.1 - 3.4) Aortic arch 2.8 cm (1.8 - 3.4) LA dimension (AP) 2D 3.3 cm (2.3 - 3.8) LAd ISD 4CH 5.6 cm (2.9 - 5.3) LA ISD 4CH W 4.6 cm (2.5 - 4.5) Name Value Normal Range LA ESV SP 4CH (A/L) 53 ml - LA ESV SP 2CH (A/L) 48 ml - LA ESV BP (A/L) 53 ml - LA ESV BP (A/L) index 22.5 ml/m2 - LA ESV SP 4CH (MOD) 50 ml - LA ESV SP 2CH (MOD) 47 ml - Name Value Normal Range MV E-wave Vmax 0.8 m/sec - MV deceleration time 195 msec - MV A-wave Vmax 0.78 m/sec - MV E:A ratio 1 ratio - LV septal e' Vmax 0.08 m/sec - LV lateral e' Vmax 0.11 m/sec - LV E:e' septal ratio 10 ratio - LV E:e' lateral ratio 7.3 ratio - Name Value Normal Range AV Vmax 1.4 m/sec - AV VTI 24.1 cm - AV peak gradient 7.8 mmHg - AV mean gradient 3.9 mmHg - LVOT Vmax 1.1 m/sec - LVOT VTI 17.6 cm - LVOT peak gradient 4.6 mmHg - LVOT mean gradient 2.3 mmHg - CHELSIE Vmax 0.76 m/sec - Name Value Normal Range TR Vmax 2.2 m/sec - TR peak gradient 19 mmHg - RAP 3 mmHg - RVSP 22 mmHg - IVC diameter 2 cm - Name Value Normal Range PV Vmax 0.79 m/sec -
[2017-07-18] MEDS ORDERED: Metoprolol Succinate XL TAB* 25 MG PO ONE (11:29)
[2017-07-18] MEDS: LORazepam TAB(*) 0.5 MG PO SCH ×2 (11:54→21:46)
[2017-07-18] MEDS: Enoxaparin(*) 40 MG/0.4 ML SYR SUBCUT SCH (11:55)
[2017-07-18] MEDS: Atorvastatin* 80 MG TAB PO SCH (17:42)
[2017-07-18] MEDS: Metoprolol Succinate XL TAB* 50 MG PO SCH (20:32)
[2017-07-19 06:39] LABS: BUN/Creatinine Ratio 10.6 (8-20); EGFR African American 119.6 (>60); Potassium 4.1 mmol/L (3.5-5.0)
[2017-07-19] MEDS: LORazepam TAB(*) 0.5 MG PO SCH ×2 (09:00→22:13)
[2017-07-19] MEDS: Aspirin Low Dose CHEW TAB* 81 MG PO SCH (09:00)
[2017-07-19] MEDS: Ticagrelor* 90 MG TAB PO SCH ×2 (09:00→22:13)
[2017-07-19] MEDS: Captopril TAB* 12.5 MG PO SCH ×3 (09:01→22:10)
[2017-07-19] MEDS: Metoprolol Succinate XL TAB* 50 MG PO SCH ×2 (09:01→22:11)
[2017-07-19] MEDS: Enoxaparin(*) 40 MG/0.4 ML SYR SUBCUT SCH (12:09)
[2017-07-19] MEDS: Atorvastatin* 80 MG TAB PO SCH (17:33)
[2017-07-19] MEDS: Zolpidem TAB* 5 MG PO PRN (22:16)
--- NOTE | 2017-07-20 00:50 | CATH ---
CARDIAC CATHETERIZATION AND INTERVENTIONAL REPORT: DATE OF PROCEDURE: 07/17/17 INDICATION FOR PROCEDURE: The patient presents with acute ST-segment elevation inferior wall myocardial infarction. PROCEDURE: Coronary arteriography, thrombectomy, balloon angioplasty and placement of a 3.5 x 38 mm long Synergy drug-eluting stent in the proximal to mid right coronary artery, post dilated in the mid segment to 3.7 mm and proximally to 4.2 mm, left heart catheterization, left ventriculography. DESCRIPTION OF PROCEDURE: The patient was interviewed and examined in the emergency room where the risks and benefits were explained, he understood them and wished to proceed. Of note, he was given a 4000 units of heparin as well as full dose aspirin and a 180 mg of Brilinta. The patient was brought to the cardiovascular laboratory, where a formal time- out was performed. The patient was prepped and draped in a sterile fashion. The right radial artery was assessed for size and found to be appropriate as an approach. The right radial artery area was anesthetized with 1% lidocaine. The right radial artery was cannulated and a 6-Nigerien Glidesheath was placed. The patient received a radial artery cocktail including 300 mcg of nitroglycerin and 3 mg verapamil. He already received heparin therapy in the emergency room, no heparin was given. Coronary arteriography was performed utilizing a 5-Nigerien TIG4 curved catheter. Following this, decision to intervene was made. An ACT was checked and found to be subtherapeutic. He received an Angiomax bolus and Angiomax drip was started. Guiding views were obtained utilizing ART4 curve with side holes 6-Nigerien guide catheter. An All Star interventional wire was advanced down the right coronary artery and a Pronto V4 extraction catheter was utilized to perform thrombectomy. Following this, balloon angioplasty was performed with a 3.0 x 30 mm long NC Emerge balloon, followed by placement of a 3.5 x 38 mm long Synergy drug-eluting stent, post dilated in the mid to distal portion with a 3.5 x 20 mm NC Emerge balloon to high pressures in proximally with a 4.0 x 12 mm long NC Emerge balloon to high pressure. Following this, the left heart catheterization was performed utilizing a 5-Nigerien pigtail catheter advanced to the ascending aorta. The catheter was then passed across the aortic valve into the left ventricle where left ventricular pressure was recorded. The left ventriculography was performed utilizing a total of 28 cc of Omnipaque dye at a rate of 14 cc per second. The catheter was then pulled back across the aortic valve to recheck gradient. At the end of the case, the catheter was removed and hemostasis was obtained with a radial artery band. A reverse Barbeau was checked and was found to be B. The total contrast used for the case was 200 cc of Omnipaque dye. The radiation exposure included 17.9 minutes of fluoro time. The air kerma radiation was 2317 microgray. The DAP radiation was 14,777 microgray per meter square. RESULTS: HEMODYNAMIC DATA: Left heart catheterization: Ascending aortic pressure was recorded at 110/ 67 with a mean of 83. Left ventricular pressure was 120 over the left ventricular end-diastolic pressure of 17. LEFT VENTRICULOGRAPHY: Performed in the ELKINS projection revealed moderate hypokinesis of the proximal to mid inferior wall with preservation of the rest of the ventricle, overall ejection fraction estimated at 40% to 45%. No significant mitral regurgitation identified. CORONARY ARTERIOGRAPHY: A. Left coronary artery: 1. Left main - widely patent with no disease. 2. Left anterior descending artery - the left anterior descending artery had no significant lesions seen in the proximal portion to mid segment had an area of 40% to 45% stenosis. The diagonal branches had no significant disease. 3. Circumflex artery - a nondominant vessel supplying a high small caliber first obtuse marginal branch followed by moderate size second and a bifurcating third obtuse marginal branch. There was no significant disease seen throughout the course of the vessel. B. Right coronary artery: Totally occluded at its proximal portion. On reconstruction, there was a long segment of diffuse disease in the proximal to mid segment. Past this point, the right coronary artery supplied a PDA and 2 posterior left ventricular branches. INTERVENTION INTO THE PROXIMAL TO MID RIGHT CORONARY ARTERY: Successful reconstitution of totally occluded right coronary artery with thrombectomy, balloon angioplasty, and placement of a 3.5 x 38 mm long Synergy drug-eluting stent, post dilated to 4.2 mm proximally and 3.7 mm mid to distal with JOHN-3 flow, no dissection seen, and 0% residual stenosis. OVERALL ASSESSMENT: Successful intervention into totally occluded proximal right coronary artery as described above. Aggressive dual antiplatelet therapy, high- dose statin therapy will be pursued in addition to recommendations of smoking cessation. [id number]/[facility] #: [id number] [facility]
[2017-07-20 06:07] LABS: BUN/Creatinine Ratio 12.4 (8-20); Calcium 8.9 mg/dL (8.6-10.3); EGFR African American 96.7 (>60); EGFR Non-African American 75.2 (>60); Potassium 3.9 mmol/L (3.5-5.0)
[2017-07-20] MEDS: Metoprolol Succinate XL TAB* 50 MG PO SCH ×2 (09:10→20:15)
[2017-07-20] MEDS: Lisinopril TAB* 10 MG PO SCH (09:11)
[2017-07-20] MEDS: Ticagrelor* 90 MG TAB PO SCH ×2 (09:12→20:17)
[2017-07-20] MEDS: Aspirin Low Dose CHEW TAB* 81 MG PO SCH (09:12)
[2017-07-20] MEDS: LORazepam TAB(*) 0.5 MG PO SCH ×2 (09:12→20:17)
[2017-07-20] MEDS: Enoxaparin(*) 40 MG/0.4 ML SYR SUBCUT SCH (12:11)
--- NOTE | 2017-07-20 16:18 | ECHO ---
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 This is a LIMITED study to reassess LV systolic function and valvular function. Technical Comments: The study quality is fair. The study is technically limited due to patient body habitus. Completed at 1450. Left Ventricle: The left ventricular chamber size is normal. There is a focal wall motion abnormality present.There is moderate to severe hypokinesis of the most proximal inferior wall low interventricular septum There is mild to moderately decreased left ventricular systolic function. The estimated ejection fraction is 40-45%. Right Ventricle: The right ventricle is slightly dilated. The right ventricular global systolic function is mildly reduced. Right Atrium: Interatrial septum appears intact without evidence of shunting. The bubble study is negative. A patent foramen ovale is not demonstrated with color Doppler and agitated contrast. There is evidence of an atrial septal aneurysm. Aortic Valve: The aortic valve is trileaflet. The aortic valve leaflets are mildly thickened. There is no evidence of aortic regurgitation. There is no evidence of aortic stenosis. Mitral Valve: The mitral valve leaflets are mildly thickened. There is a trace of mitral regurgitation. There is no evidence of mitral stenosis. Tricuspid Valve: The tricuspid valve leaflets are normal. There is a physiologic tricuspid regurgitation. There is no tricuspid stenosis. Pulmonic Valve: The pulmonic valve structure is not well visualized. Contrast: Normal saline was used as contrast for the bubble study. Images 40 and 41. Intravenous contrast was used to help determine presence of intracardiac shunting. Conclusions The left ventricular chamber size is normal. There is a focal wall motion abnormality present.There is moderate to severe hypokinesis of the most proximal inferior wall low interventricular septum There is mild to moderately decreased left ventricular systolic function. LVEF visually estimated at 40-45% There is evidence of an atrial septal aneurysm. The right ventricle is slightly dilated. The right ventricular global systolic function is mildly reduced. There is a trace of mitral regurgitation. The bubble study is negative. Interatrial septum appears intact without evidence of shunting. Compared to report of study from 07/18/2017 the overall LV systolic function is mildly improved with with respect to the inferior wall motion.
[2017-07-20] MEDS: Atorvastatin* 80 MG TAB PO SCH (16:19)
[2017-07-20] MEDS: Zolpidem TAB* 5 MG PO PRN (23:07)
[2017-07-21 06:04] LABS: BUN/Creatinine Ratio 11.6 (8-20); EGFR African American 97.7 (>60); Potassium 4.4 mmol/L (3.5-5.0)
[2017-07-21 07:39] VITALS: BP 110/67
[2017-07-21] MEDS ORDERED: Metoprolol Succinate XL TAB* 100 MG PO SCH (09:00)
[2017-07-21] MEDS: Aspirin Low Dose CHEW TAB* 81 MG PO SCH (09:30)
[2017-07-21] MEDS: LORazepam TAB(*) 0.5 MG PO SCH (09:30)
[2017-07-21] MEDS: Ticagrelor* 90 MG TAB PO SCH (09:30)
[2017-07-21] MEDS: Lisinopril TAB* 10 MG PO SCH (09:30)
--- NOTE | 2017-07-21 11:05 | DS ---
CC: José Miguel Frias MD DISCHARGE SUMMARY: DATE OF ADMISSION: 07/17/17 DATE OF DISCHARGE: 07/21/17 FINAL DIAGNOSIS: Acute ST-segment elevation myocardial infarction. SECONDARY DIAGNOSES: 1. Coronary artery disease. 2. Hyperlipidemia. 3. Hypertension. 4. Ischemic cardiomyopathy. DISCHARGE MEDICATIONS: Include: 1. Aspirin 81 mg a day. 2. Atorvastatin 80 mg a day. 3 Lisinopril 15 mg a day. 4. Metoprolol succinate 100 mg in the morning and 50 mg at night. 5. Nitroglycerin sublingual. 6. Ticagrelor 90 mg twice a day. HOSPITAL COURSE: The patient is a pleasant 32-year-old gentleman who was in the midst of acute ST segment elevation inferior wall myocardial infarction, presenting on . Please refer to the H and P for complete details. He was brought emergently to the cardiovascular laboratory where he was found to have a total occlusion of the proximal right coronary artery and a 40% to 45% mid LAD lesion. He underwent thrombectomy, balloon angioplasty and placement of drug eluting stent in the proximal right coronary artery. Through the initial 24 to 48 hours, he had multiple episodes of nonsustained V-tach necessitating IV lidocaine which was weaned off successfully with no further significant rhythm disturbances. Initial echocardiogram had documented left ventricular systolic dysfunction with an EF of 35% to 40% with a repeat echo done that showed a 40% to 45% ejection fraction prior to discharge. Of note, atrial septal aneurysm was noted without shunting. He was eventually up and about, and on the day of discharge, he was stable. DISCHARGE PHYSICAL EXAMINATION: Vital Signs: Blood pressure 110/67, pulse 65, respirations 20, O2 saturation 99% on room air, afebrile. Neck was supple. No increased JVP. Carotid with good upstrokes and volume without bruits. Conjunctivae pink. Sclerae clear. Lungs reveal no accessory muscle usage. There was good excursion. Lungs were clear, with no active rales, rhonchi or wheezes. Heart reveal no visible heaves, no palpable heaves or thrills. Normal S1 and S2 with no S3, S4 gallop. No significant systolic or diastolic murmur. Abdomen was obese, soft, nontender. Extremities without edema. The right radial artery site was well healed with good antegrade flow. Neuro: The patient is alert, oriented with normal mentation. Musculoskeletal: The patient with normal gait. Psychiatric: The patient with normal affect. LABORATORY DATA: Laboratory results during the course of the hospitalization revealed a peak CPK of 1157 with a peak MB of 238, peak troponin of 47, which represented the first sample after opening the artery. His LDL on admission was 115. His blood sugars revealed mild hyperglycemia with fasting blood sugar of 112. His BUN and creatinine on the day of discharge was 14 and 1.1. The patient will follow up with me in the office within the next 10 days. He received a cardiac education booklet. He is set up for cardiac rehab. He received assistance with his medication and setting up with Medicaid to cover the current admission and then being placed on his 's insurance plan to cover medications after that. I reviewed all of the signs and symptoms to watch for cardiac issues and answered his questions, his 's questions to their satisfaction. The discharge time included 60 minutes' time with at least 40 minutes of this being with the patient directly. [id number]/[facility] #: [id number] JOHN
--- NOTE | 2017-07-21 11:13 | DS ---
CC: José Miguel Frias MD DISCHARGE SUMMARY: DATE OF ADMISSION: 07/17/17 DATE OF DISCHARGE: 07/21/17 DICTATION ENDS ABRUPTLY [id number]/[facility] #: [id number]
[2017-07-21] MEDS ORDERED: Metoprolol Succinate XL TAB* 50 MG PO SCH (21:00)
== END 2017-07-21 11:15 | disposition home or self-care (01) | DRG 247 ==
LOC: ED 01:31 → CHICATH 03:06 → ICU 03:08 → MEDTELE 07-19 16:28
PROVIDERS: ADMIT Internal Medicine Cardiovascular Disease; ATTEND Internal Medicine Cardiovascular Disease
PROC: 02C03ZZ Extirpation of Matter from Coronary Artery, One Artery, Percutaneous Approach (ICD-10-PCS; 2017-07-17)
PROC: B2111ZZ Fluoroscopy of Multiple Coronary Arteries using Low Osmolar Contrast (ICD-10-PCS; 2017-07-17)
PROC: 4A023N7 Measurement of Cardiac Sampling and Pressure, Left Heart, Percutaneous Approach (ICD-10-PCS; 2017-07-17)
PROC: B2151ZZ Fluoroscopy of Left Heart using Low Osmolar Contrast (ICD-10-PCS; 2017-07-17)
PROC: 3E03317 Introduction of Other Thrombolytic into Peripheral Vein, Percutaneous Approach (ICD-10-PCS; 2017-07-17)
PROC: 027034Z Dilation of Coronary Artery, One Artery with Drug-eluting Intraluminal Device, Percutaneous Approach (ICD-10-PCS; principal; 2017-07-17 07:00)
DX: I21.19 ST elevation (STEMI) myocardial infarction involving other coronary artery of inferior wall (principal); I47.2 Ventricular tachycardia; I25.3 Aneurysm of heart; E78.5 Hyperlipidemia, unspecified; F12.90 Cannabis use, unspecified, uncomplicated; R40.2412 Glasgow coma scale score 13-15, at arrival to emergency department; F17.200 Nicotine dependence, unspecified, uncomplicated; I25.5 Ischemic cardiomyopathy; I10 Essential (primary) hypertension; Z79.82 Long term (current) use of aspirin; Z72.89 Other problems related to lifestyle; Z82.49 Family history of ischemic heart disease and other diseases of the circulatory system
CPT/HCPCS: 36415; 71010; 80048; 80053; 80061; 80307; 82550; 82553; 83721; 83735; 83874; 83880; 84484; 85025; 85610; 85730; 87641; 93005; 93306; 93308; A9270-GY; C1725; C1757; C1769; C1876; C1887; C9606-RC; J0583; J1644; J1650; J2001; J2250; J3010

== ENCOUNTER 2017-11-28 19:35 | Emergency (ER) | payer OTHER ==
[2017-11-28] MEDS ORDERED: Sulfamethox/Trimethoprim DS 800/160* TAB PO ONE (20:40)
--- NOTE | 2017-11-28 20:40 | ED ---
Skin Complaint - HPI Summary HPI Summary: 32-year-old male presents with neck abscess the past 5 days. He states he had a bug bite 2 years ago but it did not bother him. He states over the past 5 days swelling has increased. He states he is not able to move his neck well due to the swelling. He denies any fevers. He denies any spreading redness. He does have a history of a boil. Denies any history of MRSA. He is not IV drug user. He denies any chills or fatigue. No other symptoms. He has been using ibuprofen for pain. - History of Current Complaint Chief Complaint: EDRashSkinAbscess Time Seen by Provider: 11/28/17 20:12 Stated Complaint: ABSCESS ON NECK Pain Intensity: 0 - Additional Pertinent History Primary Care Physician: [id number] - Allergy/Home Medications Allergies/Adverse Reactions: Allergies Allergy/AdvReac Type Severity Reaction Status Date / Time No Known Allergies Allergy Verified 03/27/17 22:41 PMH/Surg Hx/FS Hx/Imm Hx Endocrine/Hematology History: Denies: Hx Anticoagulant Therapy, Hx Diabetes Cardiovascular History: Denies: Hx Coronary Artery Disease, Hx Hypertension Respiratory History: Denies: Hx Asthma Sensory History: Denies: Hx Contacts or Glasses, Hx Hearing Aid Opthamlomology History: Denies: Hx Contacts or Glasses Psychiatric History: Reports: Hx Depression - Surgical History Surgery Procedure, Year, and Place: None Infectious Disease History: No Infectious Disease History: Denies: Traveled Outside the [place] in Last 30 Days - Family History Known Family History: Positive: Hypertension - Social History Alcohol Use: Daily Alcohol Amount: 3-4 drinks Hx Substance Use: Yes Substance Use Type: Reports: Marijuana Substance Use Comment - Amount & Last Used: 3-4 times/week, last night Hx Tobacco Use: Yes Smoking Status (MU): Current Every Day Smoker Type: Cigars Amount Used/How Often: 3 cigars/day Have You Smoked in the Last Year: Yes Review of Systems Negative: Fever Negative: Chest Pain Negative: Shortness Of Breath Positive: Other - neck abscess All Other Systems Reviewed And Are Negative: Yes Physical Exam Triage Information Reviewed: Yes Vital Signs On Initial Exam: Initial Vitals Temp Pulse Resp BP Pulse Ox 96.9 F 61 20 151/74 99 11/28/17 19:37 11/28/17 19:37 11/28/17 19:37 11/28/17 19:37 11/28/17 19:37 Vital Signs Reviewed: Yes Appearance: Positive: Well-Appearing Skin: Positive: Warm, Other - 4 cm x 3 cm abscess on left posterior neck Head/Face: Positive: Normal Head/Face Inspection Eyes: Positive: Normal, Conjunctiva Clear ENT: Positive: Pharynx normal Respiratory/Lung Sounds: Positive: Clear to Auscultation, Breath Sounds Present Cardiovascular: Positive: Normal, RRR Musculoskeletal: Positive: Strength/ROM Intact - neck Neurological: Positive: Normal Psychiatric: Positive: Normal Procedures - Incision and Drainage Site: left-sided neck Anesthesia: Local Instrument(s): Scalpel, Needle Diagnostics - Vital Signs Vital Signs Temp Pulse Resp BP Pulse Ox 11/28/17 19:37 96.9 F 61 20 151/74 99 - Laboratory Lab Statement: Any lab studies that have been ordered have been reviewed, and results considered in the medical decision making process. Course/Dx - Course Course Of Treatment: 32-year-old male presents with neck abscess the past 5 days. He states he had a bug bite 2 years ago but it did not bother him. He states over the past 5 days swelling has increased. He states he is not able to move his neck well due to the swelling. He denies any fevers. He denies any spreading redness. He does have a history of a boil. Denies any history of MRSA. He is not IV drug user. He denies any chills or fatigue. No other symptoms. He has been using ibuprofen for pain. On exam has 3 cm for syndrome abscess of neck. I&D area and got a copious amount of pus. Will place on Bactrim. Patient understands agrees plan. - Differential Diagnoses - Skin Complaint Differential Diagnoses: Abscess, Cellulitis, Contact Dermatitis - Diagnoses Provider Diagnoses: Neck abscess Discharge - Sign-Out/Discharge Documenting (check all that apply): Discharge/Admit/Transfer - Discharge Plan Condition: Good Disposition: HOME Prescriptions: Sulfamethox/Trimethoprim DS* [Bactrim DS 800/160 TAB*] 1 tab PO BID #19 tab Patient Education Materials: Abscess (ED) Forms: *Work Release Referrals: José Miguel Frias MD [Primary Care Provider] - Additional Instructions: Take antibiotic twice a day for 10 days, first dose given in ED Apply warm compresses to area Take ibuprofen or Tylenol for pain every 6 hours Return to ED if develop fever, area of redness spreads, or any new or worsening symptoms - Billing Disposition and Condition Condition: GOOD Disposition: HOME
[2017-11-29 00:38] VITALS: BP 145/83
== END 2017-11-28 22:03 | disposition home or self-care (01) ==
LOC: ED 19:35
DX: L02.11 Cutaneous abscess of neck (principal); F17.210 Nicotine dependence, cigarettes, uncomplicated
CPT/HCPCS: 10060; 87070; 87077; 87205; 99282; A9270-GY

== ENCOUNTER 2017-12-06 18:19 | Emergency (ER) | payer OTHER ==
--- NOTE | 2017-12-06 21:10 | ED ---
Skin Complaint - HPI Summary HPI Summary: Complains of abscess to left side posterior neck 1.5 week. Seen here / for same and I&D was done, was given prescription for Bactrim. Has been compliant with Bactrim, but abscess has persisted. Denies PAYTON, ear pain, jaw pain, neck stiffness, fever, cough, sore throat, CP, SOB, N/V/D, abdomen pain, change in urinary BM. Medical history is CO 1. - History of Current Complaint Chief Complaint: EDRashSkinAbscess Time Seen by Provider: 12/06/17 19:10 Stated Complaint: ABSESS/BACK OF NECK Hx Obtained From: Patient Skin Exposure Onset/Duration: Days Ago Timing: Constant Onset Severity: Mild Current Severity: Mild Pain Intensity: 2 Pain Scale Used: 0-10 Numeric Skin Location: Neck Associated Signs & Symptoms: Drainage - Additional Pertinent History Primary Care Physician: [id number] - Allergy/Home Medications Allergies/Adverse Reactions: Allergies Allergy/AdvReac Type Severity Reaction Status Date / Time No Known Allergies Allergy Verified 12/06/17 18:37 PMH/Surg Hx/FS Hx/Imm Hx Endocrine/Hematology History: Denies: Hx Anticoagulant Therapy, Hx Diabetes Cardiovascular History: Denies: Hx Coronary Artery Disease, Hx Hypertension Respiratory History: Denies: Hx Asthma Sensory History: Denies: Hx Contacts or Glasses, Hx Hearing Aid Opthamlomology History: Denies: Hx Contacts or Glasses Psychiatric History: Reports: Hx Depression - Surgical History Surgery Procedure, Year, and Place: None Infectious Disease History: No Infectious Disease History: Denies: Traveled Outside the [place] in Last 30 Days - Family History Known Family History: Positive: Hypertension - Social History Alcohol Use: Daily Alcohol Amount: 3-4 drinks Hx Substance Use: Yes Substance Use Type: Reports: Marijuana Substance Use Comment - Amount & Last Used: 3-4 times/week, last night Hx Tobacco Use: Yes Smoking Status (MU): Current Every Day Smoker Type: Cigars Amount Used/How Often: 3 cigars/day Have You Smoked in the Last Year: Yes Review of Systems Constitutional: Negative Eyes: Negative ENT: Negative Cardiovascular: Negative Gastrointestinal: Negative Genitourinary: Negative Musculoskeletal: Negative Skin: Negative Neurological: Negative Psychological: Normal All Other Systems Reviewed And Are Negative: Yes Physical Exam - Summary Physical Exam Summary: Large fluctuant abscess to posterior left side neck. Localized erythema. No drainage. Full range of motion of neck, jaw. No facial swelling. Triage Information Reviewed: Yes Vital Signs On Initial Exam: Initial Vitals Temp Pulse Resp BP Pulse Ox 98.9 F 63 16 122/78 97 12/06/17 18:32 12/06/17 18:32 12/06/17 18:32 12/06/17 18:32 12/06/17 18:32 Vital Signs Reviewed: Yes Appearance: Positive: Well-Appearing Skin: Positive: Warm Head/Face: Positive: Normal Head/Face Inspection Eyes: Positive: Normal ENT: Positive: Normal ENT inspection Neck: Positive: Supple Respiratory/Lung Sounds: Positive: Clear to Auscultation Cardiovascular: Positive: Normal Abdomen Description: Positive: Nontender Musculoskeletal: Positive: Normal Neurological: Positive: Normal Psychiatric: Positive: Normal AVPU Assessment: Alert - Letty Coma Scale Best Eye Response: 4 - Spontaneous Best Motor Response: 6 - Obeys Commands Best Verbal Response: 5 - Oriented Coma Scale Total: 15 Procedures - Incision and Drainage Site: left-sided neck Anesthesia: Local, Lidocaine Instrument(s): Scalpel Diagnostics - Vital Signs Vital Signs Temp Pulse Resp BP Pulse Ox 12/06/17 19:31 98.0 F 60 16 148/74 98 12/06/17 18:32 98.9 F 63 16 122/78 97 - Laboratory Lab Statement: Any lab studies that have been ordered have been reviewed, and results considered in the medical decision making process. Course/Dx - Course Course Of Treatment: Vital signs within normal limits and stable. Currently on Bactrim. Prior I&D. Today's I&D at significant purulent drainage. Patient states he has 2 or 3 days left on Bactrim. We will extend prescription for Bactrim. Continue warm compresses follow-up with primary care - Diagnoses Provider Diagnoses: Abscess Discharge - Sign-Out/Discharge Documenting (check all that apply): Discharge/Admit/Transfer - Discharge Plan Condition: Stable Disposition: HOME Prescriptions: Sulfamethox/Trimethoprim DS* [Bactrim DS 800/160 TAB*] 1 tab PO BID 5 Days #10 tab Patient Education Materials: Abscess (ED) Forms: *Work Release Referrals: José Miguel Frias MD [Primary Care Provider] - Additional Instructions: Follow-up with primary care. Continue use warm compresses. Return to the ED for any new or worsening symptoms - Billing Disposition and Condition Condition: STABLE Disposition: HOME
[2017-12-06 21:32] VITALS: BP 135/92
== END 2017-12-06 21:29 | disposition home or self-care (01) ==
LOC: ED 18:19
DX: L02.11 Cutaneous abscess of neck (principal); I25.2 Old myocardial infarction; F32.9 Major depressive disorder, single episode, unspecified; F17.290 Nicotine dependence, other tobacco product, uncomplicated
CPT/HCPCS: 10060; 87070; 87077; 87205; 87640; 87641; 99282

== ENCOUNTER 2018-01-18 05:19 | Emergency (ER) | payer OTHER ==
[2018-01-18] MEDS ORDERED: Benzocaine/Butamben/Tetracain* SPRAY TOPICAL ONE (05:41)
[2018-01-18] MEDS ORDERED: Benzocaine/Butamben/Tetracain (CETACAINE - SINGLE USE) 5 gm TOPICAL ONE (06:00)
[2018-01-18 06:21] VITALS: BP 155/90
--- NOTE | 2018-01-29 11:46 | ED ---
Tarik Thakkar Tariq, scribed for Zheng Alvarez MD on 01/18/18 at 0547 . Complex/Multi-Sys Presentation - HPI Summary HPI Summary: A 32 y/o male presents to the ED c/o an abscess on the inside roof of his mouth. According to the pt, it started 2-3 days ago, when he had a toothache. He went to the doctors, in which he was prescribed antibiotics and pain medications, however they did not work. He could barely sleep due to the pain becoming more severe, and he cannot eat anything cold, as the cold temperature inflames the abcess. Additionally, pt is having difficulty eating, however drinking warm liquids can wotk To alleviate the pain, the pt used perioxcide and warm alt water, listerine, however none worked. PMHx of [place] in June. - History Of Current Complaint Chief Complaint: EDDentalPain Time Seen by Provider: 01/18/18 05:22 Hx Obtained From: Patient Onset/Duration: Sudden Onset Timing: Constant, Days Severity Currently: Moderate - Allergies/Home Medications Allergies/Adverse Reactions: Allergies Allergy/AdvReac Type Severity Reaction Status Date / Time No Known Allergies Allergy Verified 01/17/18 09:59 PMH/Surg Hx/FS Hx/Imm Hx Endocrine/Hematology History: Denies: Hx Anticoagulant Therapy, Hx Diabetes Cardiovascular History: Denies: Hx Coronary Artery Disease, Hx Hypertension Respiratory History: Denies: Hx Asthma Sensory History: Denies: Hx Contacts or Glasses, Hx Hearing Aid Opthamlomology History: Denies: Hx Contacts or Glasses Psychiatric History: Reports: Hx Depression - Surgical History Surgery Procedure, Year, and Place: None Infectious Disease History: No Infectious Disease History: Denies: Traveled Outside the [place] in Last 30 Days - Family History Known Family History: Positive: Hypertension - Social History Alcohol Use: Weekly Alcohol Amount: 3-4 drinks Hx Substance Use: Yes Substance Use Type: Reports: None Substance Use Comment - Amount & Last Used: 3-4 times/week, last night Hx Tobacco Use: Yes Smoking Status (MU): Light Every Day Tobacco Smoker Type: Cigars Amount Used/How Often: 3 cigars/day Have You Smoked in the Last Year: Yes Review of Systems Negative: Fever Positive: Other - Abscess All Other Systems Reviewed And Are Negative: Yes Physical Exam - Summary Physical Exam Summary: Appearance:Well-appearing, Well-nourished, lying in bed comfortably Skin:Warm, dry, no obvious rash Eyes:sclera anicteric, no conjunctival pallor ENT:mucous membranes moist, pharynx appears normal. Large dental abscesses on hard palate to the left., tense, function. Neck:Supple, nontender Respiratory:Clear to auscultation, no signs of respiratory distress Cardiovascular:Normal S1, S2. No murmurs. Normal distal pulses in tibial and radial bilaterally. Abdomen:Soft, nontender, normal active bowel sounds present Musculoskeletal:Large dental abscess on the left of the hard palate. Abscess is tense, flunctuan, broken down tooth. ( no neck f Neurological:A&Ox3, awake and alert, mentation is normal, speech is fluent and appropriate Psychiatric:affect is normal, does not appear anxious or depressed Triage Information Reviewed: Yes Vital Signs On Initial Exam: Initial Vitals Temp Pulse Resp BP Pulse Ox 97.7 F 54 18 160/107 98 01/18/18 05:30 01/18/18 05:30 01/18/18 05:30 01/18/18 05:30 01/18/18 05:30 Vital Signs Reviewed: Yes Procedures - Incision and Drainage Left Upper Site: palate Anesthesia: Topical Instrument(s): Scalpel Diagnostics - Vital Signs Vital Signs Temp Pulse Resp BP Pulse Ox 01/18/18 05:30 97.7 F 54 18 160/107 98 - Laboratory Lab Statement: Any lab studies that have been ordered have been reviewed, and results considered in the medical decision making process. Complex Multi-Symp Course/Dx - Diagnoses Provider Diagnoses: Dental abscess Discharge - Sign-Out/Discharge Documenting (check all that apply): Discharge/Admit/Transfer - Discharge Plan Condition: Improved Disposition: HOME Patient Education Materials: Dental Abscess (ED) Referrals: José Miguel Frias MD [Primary Care Provider] - Additional Instructions: Now that the abscess has been drained it should heal with the antibiotics prescribed. He will still need to see a dentist because that tooth will need to be pulled. Otherwise he will likely have further infections going forward. - Billing Disposition and Condition Condition: IMPROVED Disposition: Home The documentation as recorded by the Tarik montano Tariq accurately reflects the service I personally performed and the decisions made by , Zheng Alvarez MD.
== END 2018-01-18 06:20 | disposition home or self-care (01) ==
LOC: ED 05:19
DX: K04.7 Periapical abscess without sinus (principal); F17.290 Nicotine dependence, other tobacco product, uncomplicated
CPT/HCPCS: 99281; A9270-GY

== ENCOUNTER 2018-09-10 04:44 | Emergency (ER) | payer SELFPAY ==
--- NOTE | 2018-09-10 06:11 | PN ---
Progress Note - Progress Note Date of Service: 09/07/18 Note: Wound culture grew MRSA positive, staph aureus positive Patient placed on Bactrim prior to discharge This is sensitive to organism Nothing further at this time
[2018-09-10 06:14] VITALS: BP 168/97
--- NOTE | 2018-09-10 15:26 | ED ---
Skin Complaint - HPI Summary HPI Summary: Patient is a 33-year-old male who presents to the ED with pain to the most superior part of the tailbone. Patient states sxs began 2 days ago and he feels this has been worsening. Patient endorses feeling of warmth and pain to the bilateral sides at the cleft of the buttocks. He states he has had this off and on for a few years, but has never had an infection. He states in the past they have never needed antibiotics or I & D. Denies fevers, sweats or chills. Denies abd pain. Continues to be able to eat and drink. Denies any body aches. Denies any pain with BM or UTI symptoms. - History of Current Complaint Chief Complaint: EDRashSkinAbscess Time Seen by Provider: 09/10/18 05:47 Stated Complaint: LOWER BACK PAIN Hx Obtained From: Patient Onset/Duration: Started Days Ago Skin Exposure Onset/Duration: Hours Ago Timing: Constant Onset Severity: Moderate Current Severity: Moderate Pain Intensity: 0 Pain Scale Used: 0-10 Numeric Aggravating Symptom(s): Touch Alleviating Symptom(s): Nothing Associated Signs & Symptoms: Tenderness - Additional Pertinent History Primary Care Physician: [id number] - Allergy/Home Medications Allergies/Adverse Reactions: Allergies Allergy/AdvReac Type Severity Reaction Status Date / Time No Known Allergies Allergy Verified 09/10/18 04:51 PMH/Surg Hx/FS Hx/Imm Hx Previously Healthy: Yes Endocrine/Hematology History: Denies: Hx Anticoagulant Therapy, Hx Diabetes Cardiovascular History: Denies: Hx Coronary Artery Disease, Hx Hypertension Respiratory History: Denies: Hx Asthma Sensory History: Denies: Hx Contacts or Glasses, Hx Hearing Aid Opthamlomology History: Denies: Hx Contacts or Glasses Psychiatric History: Reports: Hx Depression - Surgical History Surgery Procedure, Year, and Place: None - Immunization History Hx Pertussis Vaccination: No Immunizations Up to Date: Yes Infectious Disease History: No Infectious Disease History: Denies: Traveled Outside the [place] in Last 30 Days - Family History Known Family History: Positive: Hypertension - Social History Occupation: Employed Full-time Lives: With Family Alcohol Use: Weekly Alcohol Amount: twice weekly Hx Substance Use: Yes Substance Use Type: Reports: Marijuana Substance Use Comment - Amount & Last Used: 2-3 times a week Hx Tobacco Use: Yes Smoking Status (MU): Light Every Day Tobacco Smoker Type: Cigars Amount Used/How Often: 3 cigars/day Have You Smoked in the Last Year: Yes Review of Systems Constitutional: Negative Negative: Fever, Chills, Fatigue, Skin Diaphoresis Negative: Palpitations, Chest Pain Negative: Shortness Of Breath, Cough Genitourinary: Negative Positive: no symptoms reported, see HPI Negative: Arthralgia, Myalgia Positive: Other - erythema and pain just above the intergluteal cleft bilaterally. Indurated. Psychological: Normal All Other Systems Reviewed And Are Negative: Yes Physical Exam Triage Information Reviewed: Yes Vital Signs On Initial Exam: Initial Vitals Temp Pulse Resp BP Pulse Ox 98.9 F 106 16 140/84 97 09/10/18 04:46 09/10/18 04:46 09/10/18 04:46 09/10/18 04:46 09/10/18 04:46 Vital Signs Reviewed: Yes Appearance: Positive: Well-Appearing, Well-Nourished Skin: Positive: Warm, Skin Color Reflects Adequate Perfusion, Other - erythema and pain just above the intergluteal cleft bilaterally. Indurated. Head/Face: Positive: Normal Head/Face Inspection Eyes: Positive: EOMI Neck: Positive: Supple, No Lymphadenopathy Respiratory/Lung Sounds: Positive: Clear to Auscultation, Breath Sounds Present Cardiovascular: Positive: RRR, Pulses are Symmetrical in both Upper and Lower Extremities Musculoskeletal: Positive: Strength/ROM Intact Neurological: Positive: Sensory/Motor Intact, Alert, Oriented to Person Place, Time, Speech Normal Psychiatric: Positive: Affect/Mood Appropriate Diagnostics - Vital Signs Vital Signs Temp Pulse Resp BP Pulse Ox 09/10/18 06:13 98.5 F 103 18 168/97 98 09/10/18 04:46 98.9 F 106 16 140/84 97 - Laboratory Lab Statement: Any lab studies that have been ordered have been reviewed, and results considered in the medical decision making process. Course/Dx - Course Course Of Treatment: Drink was treatment, the patient is evaluated for erythema and pain to the sacrum bilaterally just above the intergluteal cleft.. There is 1.5 cm indurated area bilaterally with erythema and pain. There is no loculated fluid collection. Bedside US shows no fluid collection - indurated area only. No pain to the anus and no erythema otherwise. He is given clidamycin and encouraged to return for any worsening symptoms. Discussed the importance of returning if he develops draining or feels a fluid collection. He understands at this time we are unable to I and D the area as there is no fluid collection. No evidence of tunneling. Pain control given and note given for work. - Differential Diagnoses - Skin Complaint Differential Diagnoses: Abscess - Diagnoses Provider Diagnoses: Abscess, gluteal cleft Discharge - Sign-Out/Discharge Documenting (check all that apply): Patient Departure Patient Received Moderate/Deep Sedation with Procedure: No - Discharge Plan Condition: Stable Disposition: HOME Prescriptions: Clindamycin Cap(NF) [Clindamycin Cap 300 mg Cap(NF)] 300 mg PO Q6H #28 cap oxyCODONE/Acetamin 5/325 MG* [Percocet 5/325 TAB*] 1 tab PO Q6H PRN #12 tab MDD 4 PRN Reason: Pain Patient Education Materials: Abscess (ED) Forms: *Work Release Referrals: José Miguel Frias MD [Primary Care Provider] - Additional Instructions: Please return to the ED if you develop any fevers, sweats, chills or worsening pain. Clindamycin four times daily x 7 days Do not stop taking this medication, even if you begin to feel better Pain medication as needed Ibuprofen 600mg three times daily Moist heat to the area (warm compresses) and baths may help with symptoms - Billing Disposition and Condition Condition: STABLE Disposition: Home
== END 2018-09-10 06:13 | disposition home or self-care (01) ==
LOC: ED 04:44
DX: L02.31 Cutaneous abscess of buttock (principal); F17.210 Nicotine dependence, cigarettes, uncomplicated
CPT/HCPCS: 99282

== ENCOUNTER 2018-09-16 09:48 | Emergency (ER) | payer SELFPAY ==
--- NOTE | 2018-09-16 11:12 | ED ---
Skin Complaint - HPI Summary HPI Summary: Pt is a 33 y/o male who presents to the ED c/o pilonidal cyst. He was here 1 week ago for his pilonidal cyst, and was given Clindamycin. He was prescribed a 7-day course of the antibiotics, however he only did 4 or 5 days of it because of insurance issues. Pt notes the cyst had some spontaneous drainage within the past week. He states it is uncomfortable to bend or sit down, and feels that he cannot work properly due to his limited ROM. Pt rates the pain as a 3/10 in severity. He denies any fever. - History of Current Complaint Chief Complaint: EDRashSkinAbscess Time Seen by Provider: 09/16/18 11:04 Stated Complaint: ABCESS LOWER BACK Hx Obtained From: Patient Onset/Duration: Started Weeks Ago - 1, Still Present Timing: Constant Current Severity: Moderate Pain Intensity: 3 Pain Scale Used: 0-10 Numeric Skin Location: Other: - sacrum Character: Pain Aggravating Symptom(s): Nothing Alleviating Symptom(s): Other: - drainage Associated Signs & Symptoms: Negative Related History: Other: - recent abx - Additional Pertinent History Primary Care Physician: [id number] - Allergy/Home Medications Allergies/Adverse Reactions: Allergies Allergy/AdvReac Type Severity Reaction Status Date / Time No Known Allergies Allergy Verified 09/16/18 09:53 PMH/Surg Hx/FS Hx/Imm Hx Endocrine/Hematology History: Denies: Hx Anticoagulant Therapy, Hx Diabetes Cardiovascular History: Reports: Hx Myocardial Infarction Denies: Hx Coronary Artery Disease, Hx Hypertension Respiratory History: Denies: Hx Asthma Sensory History: Denies: Hx Contacts or Glasses, Hx Hearing Aid Opthamlomology History: Denies: Hx Contacts or Glasses Psychiatric History: Reports: Hx Depression - Surgical History Surgery Procedure, Year, and Place: None Infectious Disease History: No Infectious Disease History: Denies: Traveled Outside the [place] in Last 30 Days - Family History Known Family History: Positive: Hypertension - Social History Alcohol Use: Weekly Alcohol Amount: twice weekly Hx Substance Use: Yes Substance Use Type: Reports: Marijuana Substance Use Comment - Amount & Last Used: 2-3 times a week Hx Tobacco Use: Yes Smoking Status (MU): Light Every Day Tobacco Smoker Type: Cigars Amount Used/How Often: 3 cigars/day Have You Smoked in the Last Year: Yes Review of Systems Negative: Fever Positive: Other - pilonidal cyst - pain All Other Systems Reviewed And Are Negative: Yes Physical Exam - Summary Physical Exam Summary: Appearance: Well appearing, no pain distress Skin: warm, dry, reflects adequate perfusion, pointing abscess to the right superior portion of the gluteal cleft measuring 3 cm in diameter, induration to the left superior portion of the gluteal cleft measuring 6 cm in diameter Head/face: normal Eyes: EOMI, MIKE ENT: mucous membranes moist Neck: supple, non-tender Respiratory: CTA, breath sounds present Cardiovascular: RRR, pulses symmetrical Abdomen: non-tender, soft Bowel Sounds: present Musculoskeletal: normal, strength/ROM intact Neuro: normal, sensory motor intact, A&Ox3 Triage Information Reviewed: Yes Vital Signs On Initial Exam: Initial Vitals Temp Pulse Resp BP Pulse Ox 96.8 F 96 17 125/84 98 09/16/18 09:48 09/16/18 09:48 09/16/18 09:48 09/16/18 09:48 09/16/18 09:48 Vital Signs Reviewed: Yes Procedures - Incision and Drainage Midline Buttocks Site: left, right pilonidal at superior aspect of gluteal cleft Anesthesia: Local - 5 cc 1% lidocaine, Lidocaine Instrument(s): Scalpel - 11 blade with 2 separate incisions, one on each side Packing: Gauze - both incision sites packed, Other - minimal purulent material, mostly blood. Dressed with dry gauze Diagnostics - Vital Signs Vital Signs Temp Pulse Resp BP Pulse Ox 09/16/18 09:48 96.8 F 96 17 125/84 98 - Laboratory Lab Statement: Any lab studies that have been ordered have been reviewed, and results considered in the medical decision making process. Course/Dx - Course Course Of Treatment: Nurse's notes reviewed. Patient has been on antibiotics and he had some draining from the pilonidal cyst abscess. There is no active draining now also 9D was performed. Minimal pus out. Mostly blood. Packing placed. Continue antibiotics. Off work. - Diagnoses Provider Diagnoses: Pilonidal cyst with abscess Discharge - Sign-Out/Discharge Documenting (check all that apply): Patient Departure - Discharge Patient Received Moderate/Deep Sedation with Procedure: No - Discharge Plan Condition: Improved Disposition: HOME Prescriptions: Clindamycin Cap(NF) [Clindamycin Cap 300 mg Cap(NF)] 300 mg PO TID #12 cap Patient Education Materials: Pilonidal Cyst (ED) Forms: *Work Release Referrals: Edwin Chairez MD [Medical Doctor] - José Miguel Frias MD [Primary Care Provider] - Additional Instructions: Call the surgeon to schedule an appointment to have the pilonidal cyst removed. The abscess is mostly cured. Remove packing in 2 days time. Continue antibiotics. Tylenol, ibuprofen for discomfort. Clean with soap and water. Return if worse, new symptoms or other concerns. - Billing Disposition and Condition Condition: IMPROVED Disposition: Home - Attestation Statements Document Initiated by Guerita: Yes Documenting Scribe: Ivet Dumont Provider For Whom Guerita is Documenting (Include Credential): Joseph German MD Scribe Attestation: Ivet Thakkar scribed for Joseph German MD on 09/16/18 at 1141. Scribe Documentation Reviewed: Yes Provider Attestation: The documentation as recorded by the Ivet montano accurately reflects the service I personally performed and the decisions made by Joseph miramontes MD Status of Scribe Document: Viewed
[2018-09-16 11:37] VITALS: BP 100/80
== END 2018-09-16 11:37 | disposition home or self-care (01) ==
LOC: ED 09:48
DX: L05.01 Pilonidal cyst with abscess (principal); F17.290 Nicotine dependence, other tobacco product, uncomplicated
CPT/HCPCS: 10080; 99282

== ENCOUNTER 2019-08-21 14:45 | Emergency (ER) | payer SELFPAY ==
[2019-08-21 17:00] VITALS: BP 140/94
--- NOTE | 2019-08-22 06:18 | ED ---
Back Pain - HPI Summary HPI Summary: Pt is a 34yo M presenting to the ED with 2 complaints. 1) Pt states he injured his back several days ago after a slip and fall. He states he is unable to work due to the discomfort. His pain has been improving over the past few days Tylenol and ibuprofen has helped. He has not taken any muscle relaxers or use any other methods for relief. He is requesting a work note to not being able to lift over the past 2 days due to discomfort. He denies any bladder or bowel dysfunction. He denies any numbness or tingling to the bilateral lower extremities. He is having pinpoint tenderness to the low back without associated bruising or signs of trauma. He is able to flex and extend at the hips as well as rotator cuff the hips. He denies hitting his head or any other injuries. 2) patient also states he is here for packing removal. 5 months ago, patient states he had a large abscess to the left side of the posterior neck at the base of the hairline and this was packed with iodoform dressing. States he never returned to have the dressing removed and would like it removed today. Denies erythema, swelling, warmth, pain to palpation and has been denying any fevers. States the skin healed over the abscess area with the dressing still inside. - History of Current Complaint Chief Complaint: EDBackInjuryPain Stated Complaint: LOWER BACK PAIN PER PT Time Seen by Provider: 08/21/19 14:50 Hx Obtained From: Patient Onset/Duration: Sudden Onset Onset/Duration: Started Hours Ago Timing: Constant Back Pain Location: Is Discrete @ - low back pain Severity Initially: Mild Severity Currently: Mild Pain Intensity: 0 Pain Scale Used: 0-10 Numeric Character: Aching Aggravating Symptom(s): Movement, Lifting, Bending Alleviating Symptom(s): Rest, Position Associated Signs And Symptoms: Positive: Negative. Negative: Swelling, Redness , Bruising, Weakness, Numbness, Bladder Incontinence, Bowel Incontinence - Risk Factors AAA Risk Factors: Negative TAD Risk Factors: Negative Cauda Equina Risk Factors: Negative Epidural Abscess Risk Factors: Negative - Allergies/Home Medications Allergies/Adverse Reactions: Allergies Allergy/AdvReac Type Severity Reaction Status Date / Time No Known Allergies Allergy Verified 03/16/19 13:44 PMH/Surg Hx/FS Hx/Imm Hx Previously Healthy: Yes Endocrine/Hematology History: Denies: Hx Anticoagulant Therapy, Hx Diabetes Cardiovascular History: Reports: Hx Myocardial Infarction Denies: Hx Coronary Artery Disease, Hx Hypertension Respiratory History: Denies: Hx Asthma Sensory History: Denies: Hx Contacts or Glasses, Hx Hearing Aid Opthamlomology History: Denies: Hx Contacts or Glasses Psychiatric History: Reports: Hx Depression - Surgical History Surgery Procedure, Year, and Place: None - Immunization History Hx Pertussis Vaccination: No Immunizations Up to Date: Yes Infectious Disease History: No Infectious Disease History: Denies: Traveled Outside the [place] in Last 30 Days - Family History Known Family History: Positive: Hypertension, Non-Contributory - Social History Occupation: Employed Full-time Lives: With Family Alcohol Use: Weekly Alcohol Amount: twice weekly Hx Substance Use: Yes Substance Use Type: Reports: Marijuana Substance Use Comment - Amount & Last Used: 2-3 times a week Hx Tobacco Use: Yes Smoking Status (MU): Light Every Day Tobacco Smoker Type: Cigars Amount Used/How Often: 3 cigars/day Have You Smoked in the Last Year: Yes Review of Systems Negative: Fever, Chills, Fatigue, Skin Diaphoresis Negative: Palpitations, Chest Pain Negative: Shortness Of Breath, Cough Genitourinary: Negative Positive: no symptoms reported Positive: Arthralgia - low back pain Positive: Other - 2cm slightly raised non-fluctuant are to the L sided of posterior nape of the neck . Negative: Rash, Bruising Neurological: Negative All Other Systems Reviewed And Are Negative: Yes Physical Exam Triage Information Reviewed: Yes Vital Signs On Initial Exam: Initial Vitals Temp Pulse Resp BP Pulse Ox 98.6 F 82 18 161/102 100 08/21/19 14:47 08/21/19 14:47 08/21/19 14:47 08/21/19 14:47 08/21/19 14:47 Vital Signs Reviewed: Yes Appearance: Positive: Well-Appearing, Well-Nourished Skin: Positive: Warm, Skin Color Reflects Adequate Perfusion, Other - 2cm slightly raised non-fluctuant are to the L sided of posterior nape of the neck possibly representing scar tissue vs. FB (iodoform dressing) without evidence of infection Head/Face: Positive: Normal Head/Face Inspection Eyes: Positive: Normal, EOMI Neck: Positive: Supple, No Lymphadenopathy Respiratory/Lung Sounds: Positive: Clear to Auscultation, Breath Sounds Present Cardiovascular: Positive: Pulses are Symmetrical in both Upper and Lower Extremities Musculoskeletal: Positive: Pain @ - no pain to palpation throughout cervical, thoracic and lumbar spine Neurological: Positive: Sensory/Motor Intact, Alert, Oriented to Person Place, Time, Speech Normal Psychiatric: Positive: Affect/Mood Appropriate Procedures - Sedation Patient Received Moderate/Deep Sedation with Procedure: No Diagnostics - Vital Signs Vital Signs Temp Pulse Resp BP Pulse Ox 08/21/19 16:56 97.2 F 70 19 140/94 97 08/21/19 14:47 98.6 F 82 18 161/102 100 - Laboratory Lab Statement: Any lab studies that have been ordered have been reviewed, and results considered in the medical decision making process. Back Pain Course/Dx - Course Course Of Treatment: Patient is evaluated for back pain as well as request for packing removal. Patient is ambulating well, denies any numbness or tingling throughout. No drops, no step-off noted. No signs of ecchymosis or signs of trauma. He is no pain on palpation throughout the cervical, thoracic and lumbar spine. Denies any pain with ambulation. He is diagnosed with acute back pain and is encouraged Tylenol and ibuprofen. Request for packing removal at the base of the skull from a previous abscess. Patient states packing has been present 5 months. Denies any erythema, swelling, pain and patient has been denies fevers. Bedside US shows no obvious collection or FB. Pt states he would prefer to f/u with surgery for removal and understands to return to the ED for any fevers, redness or pain. - Diagnoses Differential Diagnosis/HQI/PQRI: Positive: Strain, Sprain, Other - scar tissue, growth, packing in place Provider Diagnoses: Back pain, Foreign body Discharge ED - Sign-Out/Discharge Documenting (check all that apply): Patient Departure - Discharge Plan Condition: Stable Disposition: HOME Forms: *Work Release Referrals: Malick Alberto MD [Primary Care Provider] - Raghavendra Thompson MD [Medical Doctor] - Additional Instructions: Please follow-up with surgery for removal of packing If you develop any worsening symptoms including redness, warmth, swelling or develop fevers, return to the ED immediately - Billing Disposition and Condition Condition: STABLE Disposition: Home - Attestation Statements Provider Attestation: I was available for consult. This patient was seen by the [facility]. The patient was not presented to, seen by, or examined by me. Juan Ramon Tucker MD
== END 2019-08-21 17:00 | disposition home or self-care (01) ==
LOC: ED 14:45
DX: M54.9 Dorsalgia, unspecified (principal); M79.5 Residual foreign body in soft tissue; F17.290 Nicotine dependence, other tobacco product, uncomplicated; I25.2 Old myocardial infarction
CPT/HCPCS: 99282

== ENCOUNTER 2021-02-07 22:07 | Inpatient (IN) ==
[2021-02-07 23:37] LABS: ABS Lymphocytes 2.1 10^3/ul (1.0-4.8); ABS Monocytes 1.2 10^3/ul (0-0.8); ABS Neutrophils 8.6 10^3/ul (1.5-7.7); Eosinophil % 0.3 %; Hematocrit 44 % (42-52); Lymphocyte % 17.6 %; Mean Corpuscular HGB Conc 34 g/dL (31-36); Mean Corpuscular Hemoglobin 31 pg (27-31); Mean Corpuscular Volume 92 fL (80-94); Mean Platelet Volume 7.9 fL (7.4-10.4); Platelet Count 171 10^3/uL (150-450); Red Blood Count 4.78 10^6 /uL (4.18-5.48); Red Cell Distribution Width 13 % (10-15)
[2021-02-07 23:47] LABS: Activated Partial Thrombo Time 29.5 seconds (26.0-38.0); INR 1.22 (0.86-1.15)
[2021-02-08 00:10] LABS: ALT 50 U/L (7-52); AST 119 U/L (13-39); Albumin/Globulin Ratio 1.3 (1-3); Alkaline Phosphatase 53 U/L (35-149); Anion Gap 5 mmol/L (2-11); Blood Urea Nitrogen 9 mg/dL (6-24); CO2 Carbon Dioxide 29 mmol/L (22-32); Calcium 9.1 mg/dL (8.6-10.3); Chloride 99 mmol/L (101-111); Creatine Kinase 744 U/L (10-223); EGFR African American 105.3 (>60); Globulin 3.1 g/dL (2-4); Glucose 115 mg/dL (70-100); Magnesium 1.7 mg/dL (1.9-2.7); Potassium 3.6 mmol/L (3.5-5.0); Sodium 133 mmol/L (135-145); Total Protein 7.1 g/dL (6.4-8.9)
[2021-02-08 00:14] LABS: CKMB ng/mL 49.6 ng/mL (0.6-6.3)
[2021-02-08 00:18] LABS: Troponin I 11.23 ng/mL (<0.03)
[2021-02-08 00:24] LABS: TSH Ultra Thyroid Stim Horm 1.74 mcIU/mL (0.34-5.60)
[2021-02-08] MEDS ORDERED: Magnesium Sulfate IV 1GM/100ML 1 GM/100 ML BAG IV ONE (00:29)
[2021-02-08] MEDS ORDERED: nitroGLYCERIN DRIP 25,000 MCG/250 ML BTL IV ONE (00:40)
[2021-02-08] MEDS ORDERED: Heparin DRIP 25,000 UNITS BAG 25,000 UNITS/500 ML BAG IV SCH ×2 (00:45→10:15)
[2021-02-08] MEDS ORDERED: NS 0.9% 1000 ml BAG 1,000 ML IV SCH (00:45)
[2021-02-08] MEDS ORDERED: Heparin 5000 UNITS/ML 1 mL VIAL IV SCH ×2 (01:00→11:00)
[2021-02-08] MEDS ORDERED: Magnesium Sulfate 2 gm BAG 2 GM/50 ML BAG IVPB ONE (01:24)
[2021-02-08] MEDS ORDERED: Potassium Chlor 20 meq TAB.ER PO ONE (01:24)
[2021-02-08 02:46] LABS: HIV 4th Generation Nonreactive (Nonreactive)
[2021-02-08] MEDS ORDERED: Magnesium Sulfate 3 GM IV IVPB ONE (03:00)
[2021-02-08 04:15] LABS: EGFR African American 127.6 (>60); EGFR Non-African American 105.4 (>60)
[2021-02-08 04:58] LABS: ABS Basophils 0.1 10^3/ul (0-0.2); ABS Lymphocytes 2.1 10^3/ul (1.0-4.8); ABS Monocytes 1.1 10^3/ul (0-0.8); ABS Neutrophils 8.8 10^3/ul (1.5-7.7); Eosinophil % 0.3 %; Hematocrit 42 % (42-52); Hemoglobin 14.4 g/dL (14.0-18.0); Lymphocyte % 17.1 %; Mean Corpuscular HGB Conc 35 g/dL (31-36); Mean Corpuscular Hemoglobin 32 pg (27-31); Mean Corpuscular Volume 91 fL (80-94); Mean Platelet Volume 8.2 fL (7.4-10.4); Platelet Count 161 10^3/uL (150-450); Red Blood Count 4.55 10^6 /uL (4.18-5.48); Red Cell Distribution Width 13 % (10-15); White Blood Count 12.1 10^3/uL (3.5-10.8)
[2021-02-08 05:15] LABS: Anion Gap 4 mmol/L (2-11); Blood Urea Nitrogen 7 mg/dL (6-24); CO2 Carbon Dioxide 29 mmol/L (22-32); Chloride 100 mmol/L (101-111); EGFR African American 124.1 (>60); EGFR Non-African American 102.6 (>60); Glucose 127 mg/dL (70-100); Sodium 133 mmol/L (135-145)
[2021-02-08 05:19] LABS: Troponin I 11.74 ng/mL (<0.03)
[2021-02-08 05:21] LABS: Urine Appearance Clear; Urine Bilirubin Negative (Negative); Urine Blood 1+ (Negative); Urine Color Yellow; Urine Glucose Negative (Negative); Urine Ketones Negative (Negative); Urine Nitrite Negative (Negative); Urine Protein Negative (Negative); Urine Urobilinogen Negative (Negative)
[2021-02-08 05:27] LABS: Urine Bacteria Absent (Absent); Urine Red Blood Cell Trace(0-2/hpf) (Absent); Urine Squamous Epithelial Cell Present (Absent); Urine White Blood Cell Trace(0-5/hpf) (Absent)
[2021-02-08 05:50] LABS: Urine Benzodiazepine Screen None Detected (None Detect); Urine Cannabinoids Screen Presumptive Positive (None Detect); Urine Opiates Screen None Detected (None Detect)
[2021-02-08 06:06] LABS: Magnesium 2.5 mg/dL (1.9-2.7); Phosphorus 2.1 mg/dL (2.5-5.0)
[2021-02-08] MEDS ORDERED: Sodium Phosphate IV 15 MMOLE in NS 0.9% 250 ml 250 ML IVPB ONE (06:10)
[2021-02-08 08:02] LABS: Cholesterol 142 mg/dL; HDL Cholesterol 42.5 mg/dL; LDL Cholesterol 92 mg/dL; Triglycerides 36 mg/dL
[2021-02-08 08:45] LABS: C Reactive Protein 83.73 mg/L (<8.01)
[2021-02-08] MEDS: Pantoprazole VIAL 40 MG VIAL IV SCH (08:46)
[2021-02-08] MEDS ORDERED: Perflutren Lipid Microsphere 3 ML VIAL ONE (10:37)
[2021-02-08] MEDS: Morphine 2 MG/ML SYRINGE IV PRN ×3 (10:38→22:25)
[2021-02-08 11:14] LABS: Lipase 92 U/L (11.0-82.0)
[2021-02-08 11:24] LABS: Erythrocyte Sed Rate 14 mm/Hr (0-14)
[2021-02-08] MEDS ORDERED: fentaNYL 100 mcg/2 ml 50 MCG/ML VIAL ONE (11:31)
[2021-02-08] MEDS ORDERED: VERAPAMIL 2.5 MG/ML 2 ML VIAL ** 5 mg/2 ml ONE (11:31)
[2021-02-08] MEDS ORDERED: Lidocaine 1% VIAL 10 MG/ML VIAL ONE (11:31)
[2021-02-08] MEDS ORDERED: Iohexol 350 (CONTRAST) 200 ML MDV IV ONE ×2 (11:31→12:30)
[2021-02-08] MEDS ORDERED: Midazolam 5 mg/5 ml VIAL 1 mg/ml 5 ml VIAL (5 mg) ONE (11:31)
[2021-02-08] MEDS ORDERED: Heparin 1,000 UNIT/ML 10 ml (10,000 UNITS) CATHLAB/DIALYSIS ONE (11:31)
[2021-02-08] MEDS ORDERED: Heparin 2 UNITS/ML 1000 mls 3,000 ML IV ONE (11:31)
[2021-02-08] MEDS ORDERED: nitroGLYCERIN DRIP 25,000 MCG/250 ML BTL ONE ×2 (11:31→14:32)
[2021-02-08] MEDS ORDERED: Bivalirudin 250 MG VIAL ONE ×2 (12:19→13:09)
[2021-02-08] MEDS ORDERED: Eptifibatide IV (Load dose) 2 MG/ML 10 ml VIAL ONE (12:39)
[2021-02-08] MEDS ORDERED: Adenosine 3 MG/ML 2 ml VIAL (6 mg) ONE (13:09)
[2021-02-08] MEDS ORDERED: Heparin 2 UNITS/ML 1000 mls 1,000 ML IV ONE (13:37)
[2021-02-08] MEDS ORDERED: nitroGLYCERIN DRIP 25,000 MCG/250 ML BTL IV SCH ×2 (15:00→15:04)
[2021-02-09 06:37] LABS: ABS Lymphocytes 1.9 10^3/ul (1.0-4.8); ABS Monocytes 1.3 10^3/ul (0-0.8); ABS Neutrophils 9.6 10^3/ul (1.5-7.7); Eosinophil % 0.2 %; Hematocrit 40 % (42-52); Lymphocyte % 14.6 %; Mean Corpuscular HGB Conc 35 g/dL (31-36); Mean Corpuscular Hemoglobin 32 pg (27-31); Mean Corpuscular Volume 91 fL (80-94); Mean Platelet Volume 8.2 fL (7.4-10.4); Platelet Count 162 10^3/uL (150-450); Red Blood Count 4.42 10^6 /uL (4.18-5.48); Red Cell Distribution Width 14 % (10-15); White Blood Count 12.8 10^3/uL (3.5-10.8)
[2021-02-09 06:51] LABS: ALT 36 U/L (7-52); AST 64 U/L (13-39); Albumin 3.8 g/dL (3.2-5.2); Albumin/Globulin Ratio 1.2 (1-3); Alkaline Phosphatase 62 U/L (35-149); Anion Gap 6 mmol/L (2-11); Blood Urea Nitrogen 5 mg/dL (6-24); CO2 Carbon Dioxide 26 mmol/L (22-32); Calcium 8.9 mg/dL (8.6-10.3); Chloride 101 mmol/L (101-111); EGFR African American 143.4 (>60); EGFR Non-African American 118.5 (>60); Globulin 3.1 g/dL (2-4); Glucose 118 mg/dL (70-100); Potassium 4.2 mmol/L (3.5-5.0); Sodium 133 mmol/L (135-145); Total Protein 6.9 g/dL (6.4-8.9)
[2021-02-09] MEDS: Sodium Phosphate IV 15 MMOLE in NS 0.9% 250 ml 250 ML IVPB ONE ×2 (07:25→07:54)
[2021-02-09] MEDS: Pantoprazole VIAL 40 MG VIAL IV SCH (07:25)
[2021-02-09] MEDS ORDERED: Heparin DRIP 25,000 UNITS BAG 25,000 UNITS/500 ML BAG IV SCH (08:45)
[2021-02-09 09:34] LABS: Troponin I 10.55 ng/mL (<0.03)
[2021-02-09] MEDS: Heparin 5000 UNITS/ML 1 mL VIAL IV SCH ×2 (10:18→15:40)
[2021-02-09] MEDS ORDERED: Buffered Lidocaine 1% SYRIN 1 ml INTRADERM ONE (10:24)
[2021-02-09 13:36] LABS: CKMB ng/mL 10.3 ng/mL (0.6-6.3)
[2021-02-09] MEDS ORDERED: Metoprolol Tartrate 5 mg VIAL 5 ml VIAL (1 mg/ml) IV PRN (16:04)
[2021-02-09 22:57] LABS: Troponin I 9.09 ng/mL (<0.03)
[2021-02-09] MEDS: Saline FLUSH-CENTRAL 10 ML SYRINGE CENT\\PICC SCH (23:06)
[2021-02-10 04:43] LABS: ABS Basophils 0.1 10^3/ul (0-0.2); ABS Eosinophils 0.1 10^3/ul (0-0.6); ABS Lymphocytes 2.7 10^3/ul (1.0-4.8); ABS Neutrophils 6.7 10^3/ul (1.5-7.7); Eosinophil % 0.7 %; Hematocrit 40 % (42-52); Hemoglobin 13.9 g/dL (14.0-18.0); Lymphocyte % 25.4 %; Mean Corpuscular HGB Conc 35 g/dL (31-36); Mean Corpuscular Hemoglobin 32 pg (27-31); Mean Corpuscular Volume 91 fL (80-94); Platelet Count 180 10^3/uL (150-450); Red Blood Count 4.38 10^6 /uL (4.18-5.48); Red Cell Distribution Width 13 % (10-15); White Blood Count 10.5 10^3/uL (3.5-10.8)
[2021-02-10 05:04] LABS: ALT 33 U/L (7-52); AST 31 U/L (13-39); Albumin 3.7 g/dL (3.2-5.2); Albumin/Globulin Ratio 1.2 (1-3); Alkaline Phosphatase 59 U/L (35-149); Anion Gap 7 mmol/L (2-11); Blood Urea Nitrogen 8 mg/dL (6-24); CO2 Carbon Dioxide 24 mmol/L (22-32); Calcium 8.6 mg/dL (8.6-10.3); Chloride 103 mmol/L (101-111); EGFR African American 120.8 (>60); EGFR Non-African American 99.9 (>60); Globulin 3.2 g/dL (2-4); Glucose 141 mg/dL (70-100); Phosphorus 2.9 mg/dL (2.5-5.0); Potassium 3.9 mmol/L (3.5-5.0); Sodium 134 mmol/L (135-145); Total Protein 6.9 g/dL (6.4-8.9)
[2021-02-10 05:15] LABS: Troponin I 7.89 ng/mL (<0.03)
[2021-02-10] MEDS ORDERED: Potassium Chlor 20 meq TAB.ER PO ONE (05:21)
[2021-02-10] MEDS ORDERED: Furosemide 40 mg/4 ml IV VIAL IV SLOW PU ONE (08:16)
[2021-02-10] MEDS: Saline FLUSH-CENTRAL 10 ML SYRINGE CENT\\PICC SCH ×2 (08:36→20:59)
[2021-02-10 13:54] LABS: Coagulation Factor V Assay 147 % (70 - 165)
[2021-02-11 06:01] LABS: ABS Basophils 0.1 10^3/ul (0-0.2); ABS Eosinophils 0.2 10^3/ul (0-0.6); ABS Lymphocytes 2.9 10^3/ul (1.0-4.8); ABS Monocytes 0.9 10^3/ul (0-0.8); Eosinophil % 1.7 %; Hematocrit 40 % (42-52); Lymphocyte % 32.1 %; Mean Corpuscular HGB Conc 35 g/dL (31-36); Mean Corpuscular Hemoglobin 32 pg (27-31); Mean Corpuscular Volume 91 fL (80-94); Mean Platelet Volume 7.7 fL (7.4-10.4); Platelet Count 210 10^3/uL (150-450); Red Cell Distribution Width 13 % (10-15); White Blood Count 9.1 10^3/uL (3.5-10.8)
[2021-02-11 06:15] LABS: Albumin 3.6 g/dL (3.2-5.2); Albumin/Globulin Ratio 1.2 (1-3); Calcium 8.9 mg/dL (8.6-10.3); EGFR African American 114.7 (>60); EGFR Non-African American 94.8 (>60); Globulin 3.1 g/dL (2-4); Magnesium 1.9 mg/dL (1.9-2.7); Potassium 3.6 mmol/L (3.5-5.0); Total Bilirubin 1.1 mg/dL (0.2-1.0); Total Protein 6.7 g/dL (6.4-8.9)
[2021-02-11 07:32] VITALS: BP 121/64
[2021-02-11] MEDS ORDERED: Potassium Chlor 20 meq TAB.ER PO ONE (09:27)
[2021-02-11] MEDS: Saline FLUSH-CENTRAL 10 ML SYRINGE CENT\\PICC SCH (10:56)
== END 2021-02-11 12:45 | disposition home or self-care (01) | DRG 174 ==
LOC: ED 22:07 → ICU 02-08 01:22 → MEDTELE 02-10 10:29
PROVIDERS: ADMIT Internal Medicine; ATTEND Hospitalist